=== PATIENT | female | born 1990 | race Caucasian/White ===

== ENCOUNTER 2020-01-20 12:17 | Inpatient (IN) | payer OTHER ==
[~2020-01-20] VITALS: Ht 167.6 cm; Wt 129.3 kg
--- OUTSIDE RECORDS SUMMARY | ~2020-01-20 | XMS | Encounter Summary ---
Demographics + + + | Address | [address] [place] [address] St | | | [place] [address] | + + + | Home Phone | | + + + | Preferred Language | Unknown | + + + | Marital Status | | + + + | Quaker Affiliation | Unknown | + + + | Race | White | + + + | Ethnic Group | Not or | + + + Author + + + | Author | [facility] | | | and [place] | + + + | Organization | [facility] | | | and [place] | + + + | Address | Unknown | + + + | Phone | Unavailable | + + + Support + + +---------+ + | Name | Relationship | Address | Phone | + + +---------+ + | Thomas Fingers | ECON | Unknown | | + + +---------+ + Care Team Providers + +------+ + | Care Pipe Maker Name | Role | Phone | + +------+ + | Paige Woods MD | PCP | | + +------+ + Reason for Visit +---------+--------+ + | Reason | Onset | Comments | | | Date | | +---------+--------+ + | Results | 10/30/ | urine screens | | | 2020 | | +---------+--------+ + Encounter Details +--------+ + + + + | Date | Type | Department | Care Team | Description | +--------+ + + + + | 10/30/ | Telephone | [facility] | Barry Magaña | Results (urine | | 2020 | | [address] | [address] | screens) | | | | [place] | [address] [place] | | | | | [id number] | [id number] | | | | | [phone] | | | +--------+ + + + + Social History + +-------+ +--------+------+ | Tobacco Use | Types | Packs/Day | Years | Date | | | | | Used | | + +-------+ +--------+------+ | Never Smoker | | | | | + +-------+ +--------+------+ + +---+---+---+ | Smokeless Tobacco: | | | | | Never Used | | | | + +---+---+---+ + + + | Sex Assigned at | Date Recorded | | | | + + + | Not on file | | + + + documented as of this encounter Miscellaneous Notes Telephone Encounter - Stephanie King, Neighborhood Conservation Officer - 10/31/2019 10:20 AM PDTCalled patient and notified her of results, patient was satisfied with this and thanked me for the call. elephone Encounter - Barry Magaña MD - 10/31/2019 8:53 AM PDTNotify Florence, Urine screens for gonorrhea and chlamydia recently sent from urgent care were both negative . No change in plan. ERS documented in this encounter Plan of Treatment Not on filedocumented as of this encounter Visit Diagnoses Not on filedocumented in this encounter"
--- OUTSIDE RECORDS SUMMARY | ~2020-01-20 | XMS | Encounter Summary ---
Demographics + + + | Address | [address] [place] [address] St | | | [place] [address] | + + + | Home Phone | | + + + | Preferred Language | Unknown | + + + | Marital Status | | + + + | Worship Affiliation | Unknown | + + + | Race | White | + + + | Ethnic Group | Not or | + + + Author + + + | Author | [facility] | | | and [place] | + + + | Organization | [facility] | | [...] Team Providers + +------+ + | Care Potato Sorter Name | Role | Phone | + +------+ + | Paige Woods MD | PCP | | + +------+ + Reason for Visit +---------+--------+ + | Reason | Onset | Comments | | | Date | | +---------+--------+ + | Results | 10/26/ | | | | 2020 | | +---------+--------+ + Encounter Details +--------+ + + + + | Date | Type | Department | Care Team | Description | +--------+ + + + + | 10/26/ | Telephone | [facility] | PoojamaraBarry vazquez | Results | | 2020 | | [address] | [address] | | | | | [place] | [address] [place] | | | | | [phone] | [address] | | | | | [phone] | | | +--------+ + + + [...] this encounter Miscellaneous Notes Telephone Encounter - Barry Magaña MD - 10/27/2019 2:25 PM PDTI called Florence at the number provided. She was informed of her negative serum hCG, CRP and CBC. She was pleased, feels fine and a ppreciated the call. She had no further questions. ERS documented in this encounter Plan of Treatment Not on filedocumented as of this encounter Visit Diagnoses Not on filedocumented in this encounter"
--- OUTSIDE RECORDS SUMMARY | ~2020-01-20 | XMS | Clinical Summary ---
Demographics + + + | Address | [address] | | | [place] [address] | + + + | Home Phone | | + + + | Preferred Language | Unknown | + + + | Marital Status | | + + + | Anabaptist Affiliation | Unknown | + + + | Race | White | + + + | Ethnic Group | Not or | + + + Author + + + | Author | [facility] | | | and [place] | + + + | Organization | [facility] | | | and [...] Team Providers + +------+ + | Care Water Operator Name | Role | Phone | + +------+ + | Paige Woods MD | PCP | | + +------+ + Allergies No Known Allergies Medications + + + +---------+------+------+-------+ | Medication | Sig | Dispensed | Refills | Star | End | Statu | | | | | | t | Date | s | | | | | | Date | | | + + + +---------+------+------+-------+ | atoMOXetine | | | 0 | 04/0 | | Activ | | (MICK) 40 mg | | | | 3/20 | | e | | capsule | | | | 20 | | | + + + +---------+------+------+-------+ | topiramate | | | 0 | 05/2 | | Activ | | (TOPAMAX) 50 MG | | | | 0/20 | | e | | tablet | | | | 20 | | | + + + +---------+------+------+-------+ | levonorgestrel | 1 Device by | | 0 | | | Activ | | (MIRENA, 52 MG,) 20 | Intrauterine route | | | | | e | | MCG/24HR IUD | once. | | | | | | + + + +---------+------+------+-------+ | | Take 1-2 tablets by | 15 | 0 | 09/0 | | Activ | | HYDROcodone-acetamin | mouth EVERY 4 TO 6 | tablet | | 1/20 | | e | | ophen (NORCO) 5-325 | HOURS NEEDED for | | | 20 | | | | mg per tablet | Pain. | | | | | | + + + +---------+------+------+-------+ | dicyclomine | Take 1 tablet by | 20 | 0 | 09/0 | | Activ | | (BENTYL) 20 MG | mouth 4 times daily | tablet | | 1/20 | | e | | tablet | (before meals and | | | 20 | | | | | nightly). | | | | | | + + + +---------+------+------+-------+ | ondansetron | Take 1 tablet by | 15 | 0 | 09/0 | | Activ | | (ZOFRAN ODT) 4 mg | mouth every 6 hours | tablet | | 1/20 | | e | | disintegrating | as needed for | | | 20 | | | | tablet | Nausea. | | | | | | + + + +---------+------+------+-------+ Active Problems No known active problems Encounters +--------+ + + + + | Date | Type | Specialty | Care Team | Description | +--------+ + + + + | 01/19/ | Emergency | Emergency Medicine | Khurram Quintero, | Biliary colic | | 2019 | | | MD Lyons, | (Primary Dx); | | | | | Eleazar Dukes MD | Calculus of | | | | | | gallbladder without | | | | | | cholecystitis | | | | | | without obstruction | +--------+ + + + + | 10/30/ | Telephone | Immediate Care | Barry Magaña | Results (urine | | 2019 | | | MD Mehdi | screens) | +--------+ + + + + | 10/26/ | Office | Immediate Care | Barry Magaña | Right lower quadrant | | 2019 | Visit | | MD Mehdi | abdominal pain | | | | | | (Primary Dx); | | | | | | Irregular menses; | | | | | | IUD (intrauterine | | | | | | device) in place | +--------+ + + + + | 10/26/ | Telephone | Immediate Care | Barry Magaña | Results | | 2020 | | | MD Mehdi | | +--------+ + + + + from Last 3 Months Social History + +-------+ +--------+------+ | Tobacco [...] on file | | + + + Last Filed Vital Signs + + + + + | Vital Sign | Reading | Time Taken | Comments | + + + + + | Blood Pressure | 154/95 | 01/20/2020 8:01 AM | | | | | PDT | | + + + + + | Pulse | 77 | 01/20/2020 8:01 AM | | | | | PDT | | + + + + + | Temperature | 35.8 C (96.4 F) | 01/20/2020 5:29 AM | | | | | PDT | | + + + + + | Respiratory Rate | 16 | 01/20/2020 5:29 AM | | | | | PDT | | + + + + + | Oxygen Saturation | 97% | 01/20/2020 8:01 AM | | | | | PDT | | + + + + + | Inhaled Oxygen | - | - | | | Concentration | | | | + + + + + | Weight | 129.3 kg (285 lb) | 01/20/2020 5:36 AM | | | | | PDT | | + + + + + | Height | 165.1 cm (5' 5") | 01/20/2020 5:36 AM | | | | | PDT | | + + + + + | Body Mass Index | 47.43 | 01/20/2020 5:36 AM | | | | | PDT | | + + + + + Plan of Treatment + + +-------+ + | Health Maintenance | Due Date | Last | Comments | | | | Done | | + + +-------+ + | Hepatitis C | | | | | Screening | 2 | | | + + +-------+ + | Med Mgmt: Cr | | | | | | 2 | | | + + +-------+ + | Med Mgmt: eGFR | | | | | | 2 | | | + + +-------+ + | Medication | | | | | Management | 2 | | | + + +-------+ + | Vaccine: | | | | | Dtap/Tdap/Td (1 - | 1 | | | | Tdap) | | | | + + +-------+ + | Cervical Cancer | | | | | Screening (Pap) | 3 | | | + + +-------+ + | Vaccine: Influenza | | | | | (#1) | 0 | | | + + +-------+ + Procedures + +--------+ + + + | Procedure Name | Priori | Date/Time | Associated Diagnosis | Comments | | | ty | | | | + +--------+ + + + | US ABDOMEN LIMITED | STAT | 01/20/2020 | | Results for this | | | | 7:45 AM | | procedure are in the | | | | PDT | | results section. | + +--------+ + + + | POCT URINALYSIS, | STAT | 01/20/2020 | | Results for this | | AUTO WITH CONF | | 6:52 AM | | procedure are in the | | | | PDT | | results section. | + +--------+ + + + | POCT TEST, | STAT | 01/20/2020 | | Results for this | | URINE, QUAL | | 6:50 AM | | procedure are in the | | | | PDT | | results section. | + +--------+ + + + | LIPASE | STAT | 01/20/2020 | | Results for this | | | | 5:45 AM | | procedure are in the | | | | PDT | | results section. | + +--------+ + + + | COMPREHENSIVE | STAT | 01/20/2020 | | Results for this | | METABOLIC PANEL | | 5:45 AM | | procedure are in the | | | | PDT | | results section. | + +--------+ + + + | CBC WITH | STAT | 01/20/2020 | | Results for this | | DIFFERENTIAL | | 5:45 AM | | procedure are in the | | | | PDT | | results section. | + +--------+ + + + | , SERUM, | STAT | 10/27/2019 | Right lower | Results for this | | QUAL | | 1:31 PM | quadrant abdominal | procedure are in the | | | | PDT | pain | results section. | + +--------+ + + + | CBC WITH | STAT | 10/27/2019 | Right lower | Results for this | | DIFFERENTIAL | | 1:31 PM | quadrant abdominal | procedure are in the | | | | PDT | pain | results section. | + +--------+ + + + | C-REACTIVE PROTEIN | STAT | 10/27/2019 | Right lower | Results for this | | | | 1:31 PM | quadrant abdominal | procedure are in the | | | | PDT | pain | results section. | + +--------+ + + + | C. TRACHOMATIS AND | STAT | 10/27/2019 | Right lower | Results for this | | N. GONORRHOEAE, NAAT | | 1:24 PM | quadrant abdominal | procedure are in the | | (APTIMA) | | PDT | pain | results section. | + +--------+ + + + | POCT TEST, | Routin | 10/27/2019 | Right lower | Results for this | | URINE, QUAL | e | 1:20 PM | quadrant abdominal | procedure are in the | | | | PDT | pain | results section. | + +--------+ + + + | POCT URINALYSIS, | Routin | 10/27/2019 | Right lower | Results for this | | AUTO WITH CONF | e | 1:20 PM | quadrant abdominal | procedure are in the | | | | PDT | pain | results section. | + +--------+ + + + from Last 3 Months Results US Abdomen Limited (01/20/2020 7:45 AM PDT) + + | Specimen | + + | | + + + + + | Impressions | Performed At | + + + | 1. IMPACTED APPEARING GALLSTONE AT THE LEVEL OF THE GALLBLADDER | [facility] | | NECK WITHOUT ADDITIONAL SONOGRAPHIC EVIDENCE OF CHOLECYSTITIS. NO | | | BILIARY DUCTAL DILATION. 2. POTENTIAL FATTY INFILTRATION OF THE | | | LIVER. Results were communicated to Dr. Lyons by the | | | pipe organ mechanic performing the exam on January 20, 2020 at 0800 hours. | | | Electronically signed by Vishnu Rincon MD 01/20/2020 8:30 AM | | + + + + + + | Narrative | Performed At | + + + | LIMITED ULTRASOUND ABDOMEN 01/20/2020 7:09 AM CLINICAL HISTORY: | [facility] | | Evaluate for cholecystitis COMPARISON: None FINDINGS: The | | | pancreas is not well visualized at the level of its body and tail due | | | to overlying bowel gas. The visible pancreas is unremarkable. The | | | liver measures 15.6 cm in craniocaudal dimension. Slightly increased | | | hepatic echotexture is suggested, potentially reflecting fatty | | | infiltration. The gallbladder is moderately distended and | | | demonstrates an echogenic, shadowing structure consistent with a | | | gallstone at the level the gallbladder neck, measuring up to 1.6 cm. | | | No other gallstone, gallbladder wall thickening or pericholecystic | | | fluid is evident. Sonographic Harrison sign is reportedly negative, | | | although the patient was administered analgesia prior to the exam. | | | The common duct measures up to 4 mm in diameter. No ascites is | | | visible. The portal and hepatic veins are patent and demonstrate | | | appropriately directed flow. | | + + + + + | Procedure Note | + + | Igor, [id number] - 01/20/2020 8:33 AM PDT LIMITED ULTRASOUND ABDOMEN 01/20/2020 7:09 AM | | | | CLINICAL HISTORY: Evaluate for cholecystitis | | | | COMPARISON: None | | | | FINDINGS: The pancreas is not well visualized at the level of its body | | and tail due to overlying bowel gas. The visible pancreas is | | unremarkable. The liver measures 15.6 cm in craniocaudal dimension. | | Slightly increased hepatic echotexture is suggested, potentially | | reflecting fatty infiltration. The gallbladder is moderately | | distended and demonstrates an echogenic, shadowing structure | | consistent with a gallstone at the level the gallbladder neck, | | measuring up to 1.6 cm. No other gallstone, gallbladder wall | | thickening or pericholecystic fluid is evident. Sonographic Harrison | | sign is reportedly negative, although the patient was administered | | analgesia prior to the exam. The common duct measures up to 4 mm in | | diameter. No ascites is visible. The portal and hepatic veins are | | patent and demonstrate appropriately directed flow. | | | | IMPRESSION: | | | | 1. IMPACTED APPEARING GALLSTONE AT THE LEVEL OF THE GALLBLADDER NECK | | WITHOUT ADDITIONAL SONOGRAPHIC EVIDENCE OF CHOLECYSTITIS. NO BILIARY | | DUCTAL DILATION. | | | | 2. POTENTIAL FATTY INFILTRATION OF THE LIVER. | | | | Results were communicated to Dr. Lyons by the pipe organ mechanic | | performing the exam on January 20, 2020 at 0800 hours. | | | | Electronically signed by Vishnu Rincon MD 01/20/2020 8:30 AM | + + + +---------+ + + | Performing | Address | City/State/Zipcode | Phone Number | | Organization | | | | + +---------+ + + | [facility] | | | | + +---------+ + + POCT Urinalysis (01/20/2020 6:52 AM PDT)Only the most recent of 2 results within the time period is included. + + + + + + | Component | Value | Ref Range | Performed | Pathologist | | | | | At | Signature | + + + + + + | Color, UA, | Light Yellow | Yellow, Light | | | | POC | | Yellow | | | + + + + + + | Clarity, | Clear | | | | | UA, POC | | | | | + + + + + + | Glucose, | Negative | Negative | | | | UA, POC | | | | | + + + + + + | Bilirubin, | Negative | Negative | | | | UA, POC | | | | | + + + + + + | Ketones, | Negative | Negative, 100 | | | | UA, POC | | mg/dL | | | + + + + + + | Specific | 1.030 | 1.001 - 1.030 | | | | [place], | | | | | | UA, POC | | | | | + + + + + + | Blood, UA, | Negative | Negative | | | | POC | | | | | + + + + + + | pH, UA, POC | 5.5 | 5.0, 6.0, 7.0, | | | | | | 8.0, 5.5, 6.5, | | | | | | 7.5 | | | + + + + + + | Protein, | Negative | Negative | | | | UA, POC | | | | | + + + + + + | Urobilinoge | < 0.2 E.U./dl | 0.2, Negative, | | | | n, UA, POC | | Normal, < 0.2 | | | | | | mg/dL, 1 mg/dL, | | | | | | < 0.2 E.U./dl, | | | | | | 1.0 E.U./dL, | | | | | | 0.2 mg/dL | | | + + + + + + | Nitrite, | Negative | Negative | | | | UA, POC | | | | | + + + + + + | Leukocyte | Negative | Negative | | | | Esterase, | | | | | | UA, POC | | | | | + + + + + + | Remark | | | | | + + + + + + + + | Specimen | + + | Urine | + + POCT Test, Urine, QUAL (01/20/2020 6:50 AM PDT)Only the most recent of 2 results within the time period is included. + + + + + + | Component | Value | Ref Range | Performed | Pathologist | | | | | At | Signature | + + + + + + | | Negative | Negative | | | | Test, | | | | | | Urine, POC | | | | | + + + + + + | Internal QC | Acceptable | Acceptable | | | + + + + + + | Specific | >=1.030 (A) | 1.010, 1.015, | | | | [place], | | 1.020, 1.025 | | | | POC | | | | | + + + + + + | Lot Number | [id number] | | | | + + + + + + | Expiration | 03/26/2021 | | | | | Date | | | | | + + + + + + + + | Specimen | + + | Urine | + + CBC with Differential (01/20/2020 5:45 AM PDT)Only the most recent of 2 results within the time period is included. + + + + + + | Component | Value | Ref Range | Performed | Pathologist | | | | | At | Signature | + + + + + + | White Blood | 6.3 | 4.0 - 11.0 K/uL | [facility] | | | Cells | | | [facility] | | | | | | [facility] | | | | | | [facility] - | | | | | | LABORATORY | | + + + + + + | Red Blood | 4.57 | 3.70 - 5.20 | [facility] | | | Cells | | M/uL | [facility] | | | | | | [facility] | | | | | | CENTER - | | | | | | LABORATORY | | + + + + + + | Hemoglobin | 13.7 | 11.5 - 16.0 | [facility] | | | | | g/dL | [facility] | | | | | | [facility] | | | | | | CENTER - | | | | | | LABORATORY | | + + + + + + | Hematocrit | 38.4 | 34.0 - 47.0 % | [facility] | | | | | | [facility] | | | | | | [facility] | | | | | | [facility] - | | | | | | LABORATORY | | + + + + + + | MCV | 84.0 | 83.0 - 101.0 fL | [facility] | | | | | | [facility] | | | | | | [facility] | | | | | | [facility] - | | | | | | LABORATORY | | + + + + + + | MCH | 30.0 | 28.0 - 35.0 pg | [facility] | | | | | | [facility] | | | | | | [facility] | | | | | | [facility] - | | | | | | LABORATORY | | + + + + + + | MCHC | 35.7 | 32.0 - 36.0 | [facility] | | | | | g/dL | [facility] | | | | | | [facility] | | | | | | CENTER - | | | | | | LABORATORY | | + + + + + + | RDW-CV | 12.2 | <15.0 % | [facility] | | | | | | [facility] | | | | | | [facility] | | | | | | [facility] - | | | | | | LABORATORY | | + + + + + + | RDW-SD | 37.1 | 35.1 - 46.3 fL | [facility] | | | | | | [facility] | | | | | | [facility] | | | | | | [facility]ENTER - | | | | | | LABORATORY | | + + + + + + | Platelet | 192 | 140 - 440 K/uL | [facility] | | | Count | | | [facility] | | | | | | [facility] | | | | | | CENTER - | | | | | | LABORATORY | | + + + + + + | MPV | 11.0 | 6.5 - 12.4 fL | [facility] | | | | | | [facility] | | | | | | [facility] | | | | | | C[facility] - | | | | | | LABORATORY | | + + + + + + | % | 56.5 | 45.0 - 82.0 % | [facility] | | | Neutrophils | | | [facility] | | | | | | [facility] | | | | | | CENTER - | | | | | | LABORATORY | | + + + + + + | % | 29.3 | 20.0 - 45.0 % | [facility] | | | Lymphocytes | | | [facility] | | | | | | [facility]ICAL | | | | | | CENTER - | | | | | | LABORATORY | | + + + + + + | % Monocytes | 10.4 | 4.0 - 12.0 % | [facility] | | | | | | [facility] | | | | | | [facility] | | | | | | CENTER - | | | | | | LABORATORY | | + + + + + + | % | 3.0 | 0.0 - 5.0 % | [facility] | | | Eosinophils | | | [facility] | | | | | | MEDICAL | | | | | | CENTER - | | | | | | LABORATORY | | + + + + + + | % Basophils | 0.5 | 0.0 - 1.0 % | [facility] | | | | | | [facility] | | | | | | [facility]ICAL | | | | | | CENTER - | | | | | | LABORATORY | | + + + + + + | % Immature | 0.3Comment: For | 0.0 - 0.4 % | [facility] | | | Granulocyte | patients, use the | | [facility] | | | s | special reference ranges | | MEDICAL | | | | listed below. | | CENTER - | | | | | | LABORATORY | | + + + + + + | Absolute | 3.55 | 1.80 - 8.50 | [facility] | | | Neutrophils | | K/uL | [facility] | | | | | | [facility] | | | | | | CENTER - | | | | | | LABORATORY | | + + + + + + | Absolute | 1.84 | 0.60 - 3.20 | [facility] | | | Lymphocytes | | K/uL | [facility] | | | | | | MEDICAL | | | | | | CENTER - | | | | | | LABORATORY | | + + + + + + | Absolute | 0.65 | 0.00 - 1.00 | [facility] | | | Monocytes | | K/uL | [facility] | | | | | | MEDICAL | | | | | | CENTER - | | | | | | LABORATORY | | + + + + + + | Absolute | 0.19 | 0.00 - 0.40 | [facility] | | | Eosinophils | | K/uL | [facility] | | | | | | MEDICAL | | | | | | CENTER - | | | | | | LABORATORY | | + + + + + + | Absolute | 0.03 | 0.00 - 0.10 | [facility] | | | Basophils | | K/uL | [facility] | | | | | | MEDICAL | | | | | | CENTER - | | | | | | LABORATORY | | + + + + + + | Absolute | 0.02Comment: For | 0.00 - 0.03 | [facility] | | | Immature | patients, use | K/uL | [facility] | | | Granulocyte | the special reference | | MEDICAL | | | s | ranges listed below. | | CENTER - | | | | | | LABORATORY | | + + + + + + | % nRBC | 0 | 0 - 2 per 100 | [facility] | | | | | WBCs | [facility] | | | | | | MEDICAL | | | | | | CENTER - | | | | | | LABORATORY | | + + + + + + | Absolute | 0.00 | 0.00 - 0.01 | [facility] | | | nRBC | | K/uL | [facility] | | | | | | [facility] | | | | | | [facility] - | | | | | | LABORATORY | | + + + + + + + + | Specimen | + + | Blood | + + + + + | Narrative | Performed At | + + + | IMMATURE GRANULOCYTES - For patients, use the following | [facility] | | reference ranges: Trim. Absolute (K/uL) Percentage (%) | [facility] | | 1st 0.003-0.091 K/uL 0.0-0.9% 2nd 0.007-0.247 K/uL | MEDICAL CENTER | | 0.1-2.0% 3rd 0.018-0.456 K/uL 0.1-2.0% | - LABORATORY | + + + + + + + + | Performing | Address | City/State/Zipcode | Phone Number | | Organization | | | | + + + + + | [facility] | [address] | [place] | [phone] | | [facility] | | [address] | | | - LABORATORY | | | | + + + + + Lipase (01/20/2020 5:45 AM PDT) + + + + + + | Component | Value | Ref Range | Performed | Pathologist | | | | | At | Signature | + + + + + + | Lipase | 42Comment: New method in | 12 - 53 U/L | [facility] | | | | use as of July 17, | | [facility] | | | | 2018. Check reference | | MEDICAL | | | | range for changes.Some | | CENTER - | | | | analytes show | | LABORATORY | | | | significant variation | | | | | | from the previous | | | | | | method.It may be | | | | | | necessary to set a new | | | | | | baseline for this | | | | | | analyte. | | | | + + + + + + + + | Specimen | + + | Blood | + + + + + + + | Performing | Address | City/State/Zipcode | Phone Number | | Organization | | | | + + + + + | [facility] | [address] | [place] | [phone] | | [facility] | | [address] | | | - LABORATORY | | | | + + + + + Comprehensive Metabolic Panel (01/20/2020 5:45 AM PDT) + + + + + + | Component | Value | Ref Range | Performed | Pathologist | | | | | At | Signature | + + + + + + | Na | 142 | 136 - 145 | [facility] | | | | | mmol/L | [facility] | | | | | | MEDICAL | | | | | | CENTER - | | | | | | LABORATORY | | + + + + + + | K | 3.7 | 3.4 - 5.1 | [facility] | | | | | mmol/L | [facility] | | | | | | MEDICAL | | | | | | CENTER - | | | | | | LABORATORY | | + + + + + + | Cl | 105 | 98 - 107 mmol/L | [facility] | | | | | | [facility] | | | | | | MEDICAL | | | | | | CENTER - | | | | | | LABORATORY | | + + + + + + | CO2 | 27 | 20 - 31 mmol/L | [facility] | | | | | | [facility] | | | | | | MEDICAL | | | | | | CENTER - | | | | | | LABORATORY | | + + + + + + | Anion Gap | 10 | 3 - 16 mmol/L | [facility] | | | | | | [facility] | | | | | | MEDICAL | | | | | | CENTER - | | | | | | LABORATORY | | + + + + + + | Glucose | 98 | 60 - 106 mg/dL | [facility] | | | | | | [facility] | | | | | | MEDICAL | | | | | | CENTER - | | | | | | LABORATORY | | + + + + + + | BUN | 16 | 9 - 23 mg/dL | [facility] | | | | | | [facility] | | | | | | MEDICAL | | | | | | CENTER - | | | | | | LABORATORY | | + + + + + + | Creatinine | 0.96 | 0.55 - 1.02 | [facility] | | | | | mg/dL | [facility] | | | | | | MEDICAL | | | | | | CENTER - | | | | | | LABORATORY | | + + + + + + | eGFR, | >60Comment: GLOMERULAR | >=60 | [facility] | | | non- | FILTRATION | mL/min/1.73m2 | [facility] | | | [place] | RATE,ESTIMATED | | MEDICAL | | | | mL/min/1.47m4Hrxb than | | CENTER - | | | | 60 Chronic kidney | | LABORATORY | | | | disease,if found over a | | | | | | 3-month period.Less than | | | | | | 15 Kidney failure | | | | + + + + + + | eGFR, | >60Comment: GLOMERULAR | >=60 | [facility] | | | | FILTRATION | mL/min/1.73m2 | [facility] | | | [place] | RATE,ESTIMATED | | MEDICAL | | | | mL/min/1.42v5Obsl than | | CENTER - | | | | 60 Chronic kidney | | LABORATORY | | | | disease,if found over a | | | | | | 3-month period.Less than | | | | | | 15 Kidney failure | | | | + + + + + + | Calcium | 9.6 | 8.7 - 10.4 | [facility] | | | | | mg/dL | [facility] | | | | | | MEDICAL | | | | | | CENTER - | | | | | | LABORATORY | | + + + + + + | Albumin | 4.4 | 3.2 - 4.8 g/dL | [facility] | | | | | | [facility] | | | | | | MEDICAL | | | | | | CENTER - | | | | | | LABORATORY | | + + + + + + | Bilirubin | 0.4 | 0.3 - 1.2 mg/dL | [facility] | | | Total | | | [facility] | | | | | | MEDICAL | | | | | | CENTER - | | | | | | LABORATORY | | + + + + + + | Total | 6.5 | 5.7 - 8.2 g/dL | [facility] | | | Protein | | | [facility] | | | | | | MEDICAL | | | | | | CENTER - | | | | | | LABORATORY | | + + + + + + | AST | 27 | 0 - 34 U/L | [facility] | | | | | | [facility] | | | | | | MEDICAL | | | | | | CENTER - | | | | | | LABORATORY | | + + + + + + | ALT | 14 | 10 - 49 U/L | [facility] | | | | | | [facility] | | | | | | MEDICAL | | | | | | CENTER - | | | | | | LABORATORY | | + + + + + + | Alkaline | 55 | 46 - 116 U/L | [facility] | | | Phosphatase | | | [facility] | | | | | | MEDICAL | | | | | | CENTER - | | | | | | LABORATORY | | + + + + + + | Globulin | 2.1 | 2.1 - 3.8 g/dL | [facility] | | | | | | [facility] | | | | | | MEDICAL | | | | | | CENTER - | | | | | | LABORATORY | | + + + + + + | Albumin/Melodie | 2.1 (H) | 0.8 - 1.9 | [facility] | | | bulin Ratio | | | [facility] | | | | | | MEDICAL | | | | | | CENTER - | | | | | | LABORATORY | | + + + + + + | BUN/Creatin | 16.7 | | [facility] | | | ine Ratio | | | [facility] | | | | | | MEDICAL | | | | | | CENTER - | | | | | | LABORATORY | | + + + + + + + + | Specimen | + + | Blood | + + + + + + + | Performing | Address | City/State/Zipcode | Phone Number | | Organization | | | | + + + + + | [facility] | [address] | [place] | [phone] | | [facility] | | [address] | | | - LABORATORY | | | | + + + + + C-Reactive Protein (10/27/2019 1:31 PM PDT) + +-------+ + + + | Component | Value | Ref Range | Performed | Pathologist | | | | | At | Signature | + +-------+ + + + | C-Reactive | <2.0 | 0.0 - 9.0 mg/L | [facility] | | | Protein | | | [facility] | | | | | | [facility] | | | | | | [facility] | | | | | | [facility] | | + +-------+ + + + + + | Specimen | + + | Blood | + + + + + + + | Performing | Address | City/State/Zipcode | Phone Number | | Organization | | | | + + + + + | [facility] | [address] | [place] | [phone] | | [facility] | | [address] | | | [facility] | | | | + + + + + , Serum, Qual (10/27/2019 1:31 PM PDT) + + + + + + | Component | Value | Ref Range | Performed | Pathologist | | | | | At | Signature | + + + + + + | hCG Screen, | Negative | Negative | [facility] | | | Serum | | | [facility] | | | | | | [facility] | | | | | | [facility] | | | | | | LAB[facility] | | + + + + + + + + | Specimen | + + | Blood | + + + + + + + | Performing | Address | City/State/Zipcode | Phone Number | | Organization | | | | + + + + + | [facility] | [address] | [place] | [phone] | | [facility] | | [address] | | | [facility] | | | | + + + + + C. trachomatis and N. gonorrhoeae, NAAT (APTIMA) (10/27/2019 1:24 PM PDT) + + + + + + | Component | Value | Ref Range | Performed | Pathologist | | | | | At | Signature | + + + + + + | Chlamydia | Negative | Negative | [facility] | | | trachomatis | | | LAB [facility] | | | PCR | | | - BKR | | + + + + + + | Neisseria | Negative | Negative | [facility] | | | Gonorrhoeae | | | LAB [facility] | | | DNA PCR | | | - BKR | | + + + + + + + + | Specimen | + + | Urine - Urine | | specimen (specimen) | + + + + + | Narrative | Performed At | + + + | Performed at: [address] [facility] [address], | [facility] | | [place], [place] [id number] Shift Boss: Mauricio Oscar MD, Phone: | [facility] | | [phone] | | + + + + + + + + | Performing | Address | City/State/Zipcode | Phone Number | | Organization | | | | + + + + + | [facility] | [address] | [place], [place] | [phone] | | [facility] | [facility] | [address] | | + + + + + from Last 3 Months Insurance +-------+--------+ +--------+ + +------+ | Payer | Benefi | Subscriber | Effect | Phone | Address | Type | | | t Plan | ID | tevin | | | | | | / | | Dates | | | | | | Group | | | | | | +-------+--------+ +--------+ + +------+ | MODA | MODA | [id number] | 05/21/19 | [phone] | [address] | PPO | | | FIRST | | 20-Pre | 9 | [phone] | | | | CHOICE | | sent | | [place], | | | | | | | | [place] [address] | | +-------+--------+ +--------+ + +------+ + +--------+ +--------+ + + | Guarantor Name | Accoun | Relation to | Date | Phone | Billing Address | | | t Type | Patient | of | | | | | | | | | | + +--------+ +--------+ + + | Florence Eubanks | Person | Self | [birth year] | [address] | | | al/Fam | | 1989 | [phone] | [place] | | | [place] | | | 4 (Home) | [phone] | + +--------+ +--------+ + + | Florence Eubanks | Person | Self | [birth year] | | [address] | | | al/Fam | | 1989 | [phone] | [place] | | | [place] | | | 4 (Home) | [phone] | + +--------+ +--------+ + + Advance Directives + + + + + | Type | Date Recorded | Patient | Explanation | | | | Intake Worker | | + + + + + | Power of | | | | | Drying Oven Attendant | | | | + + + + + | Advance | | | | | Directive | | | | + + + + +
--- OUTSIDE RECORDS SUMMARY | ~2020-01-20 | XMS | Encounter Summary ---
Demographics + + + | Address | [address] [place] [address] St | | | [place] [address] | + + + | Home Phone | | + + + | Preferred Language | Unknown | + + + | Marital Status | | + + + | Hoahaoism Affiliation | Unknown | + + + | Race | White | + + + | Ethnic Group | Not or | + + + Author + + + | Author | [facility] | | | and [place] | + + + | Organization | [facility] | | | and [...] Team Providers + +------+ + | Care Window Installation Subcontractor Name | Role | Phone | + +------+ + | Paige Woods MD | PCP | | + +------+ + Reason for Visit + + + | Reason | Comments | + + + | Abdominal Pain | | + + + Encounter Details +--------+ + + + + | Date | Type | Department | Care Team | Description | +--------+ + + + + | 01/19/ | Emergency | [facility] | Khurram Quintero, | Biliary colic | | 2020 | | [facility] | [address] | (Primary Dx); | | | | CENTER [address] | [place], [place] | Calculus of | | | | [place], [place] | [address] | gallbladder without | | | | [address] | | cholecystitis | | | | [phone] | Eleazar Lyons | without obstruction | | | | | [place], [address] | | | | | | [address] [place], [place] | | | | | | [address] | | | | | | [phone] | | | | | | | | +--------+ + + + [...] + + documented as of this encounter Last Filed Vital Signs + + + [...] | | + + + + + documented in this encounter Discharge Instructions Instructions Eleazar Lyons MD - 01/20/2020Dicyclomine for gallbladder pain/spasm [place] for more severe pain Zofran for nausea Return for worsening symptoms or any other concerns Call Dr. Murphy's office today to schedule a follow-up appointment documented in this encounter Medications at Time of Discharge + + + +---------+ + + | Medication | Sig | Dispensed | Refills | Start | End Date | | | | | | Date | | + + + +---------+ + + | atoMOXetine | | | 0 | 08/22/19 | | | (STRATTERA) 40 mg | | | | 20 | | | capsule | | | | | | + + + +---------+ + + | dicyclomine | Take 1 tablet by | 20 | 0 | 01/20/20 | | | (BENTYL) 20 MG | mouth 4 times daily | tablet | | 20 | | | tablet | (before meals and | | | | | | | nightly). | | | | | + + + +---------+ + + | | Take 1-2 tablets by | 15 | 0 | 01/20/20 | | | HYDROcodone-acetamin | mouth EVERY 4 TO 6 | tablet | | 20 | | | ophen (NORCO) 5-325 | HOURS NEEDED for | | | | | | mg per tablet | Pain. | | | | | + + + +---------+ + + | levonorgestrel | 1 Device by | | 0 | | | | (MIRENA, 52 MG,) 20 | Intrauterine route | | | | | | MCG/24HR IUD | once. | | | | | + + + +---------+ + + | ondansetron | Take 1 tablet by | 15 | 0 | 01/20/20 | | | (ZOFRAN ODT) 4 mg | mouth every 6 hours | tablet | | 20 | | | disintegrating | as needed for | | | | | | tablet | Nausea. | | | | | + + + +---------+ + + | topiramate | | | 0 | 10/08/19 | | | (TOPAMAX) 50 MG | | | | 20 | | | tablet | | | | | | + + + +---------+ + + documented as of this encounter ED Notes Eleazar Lyons MD - 01/20/2020 6:26 AM PDTFormatting of this note might be differe nt from the original. Patient was previously seen and evaluated by Dr. Quintero. Please see their note for full h istory, exam and workup details. Upon change of shift care was turned over to myself with a general plan to follow up on lab and imaging studies to determine further treatment and juvencio ropriate disposition. Labs Results for orders placed or performed during the hospital encounter of 01/20/20 CBC with Differential Result Value Ref Range White Blood Cells 6.3 4.0 - 11.0 K/uL Red Blood Cells 4.57 3.70 - 5.20 M/uL Hemoglobin 13.7 11.5 - 16.0 g/dL Hematocrit 38.4 34.0 - 47.0 % MCV 84.0 83.0 - 101.0 fL MCH 30.0 28.0 - 35.0 pg MCHC 35.7 32.0 - 36.0 g/dL RDW-CV 12.2 <15.0 % RDW-SD 37.1 35.1 - 46.3 fL Platelet Count 192 140 - 440 K/uL MPV 11.0 6.5 - 12.4 fL % Neutrophils 56.5 45.0 - 82.0 % % Lymphocytes 29.3 20.0 - 45.0 % % Monocytes 10.4 4.0 - 12.0 % % Eosinophils 3.0 0.0 - 5.0 % % Basophils 0.5 0.0 - 1.0 % % Immature Granulocytes 0.3 0.0 - 0.4 % Absolute Neutrophils 3.55 1.80 - 8.50 K/uL Absolute Lymphocytes 1.84 0.60 - 3.20 K/uL Absolute Monocytes 0.65 0.00 - 1.00 K/uL Absolute Eosinophils 0.19 0.00 - 0.40 K/uL Absolute Basophils 0.03 0.00 - 0.10 K/uL Absolute Immature Granulocytes 0.02 0.00 - 0.03 K/uL % nRBC 0 0 - 2 per 100 WBCs Absolute nRBC 0.00 0.00 - 0.01 K/uL Comprehensive Metabolic Panel Result Value Ref Range Na 142 136 - 145 mmol/L K 3.7 3.4 - 5.1 mmol/L Cl 105 98 - 107 mmol/L CO2 27 20 - 31 mmol/L Anion Gap 10 3 - 16 mmol/L Glucose 98 60 - 106 mg/dL BUN 16 9 - 23 mg/dL Creatinine 0.96 0.55 - 1.02 mg/dL eGFR, non- >60 >=60 mL/min/1.73m2 eGFR, >60 >=60 mL/min/1.73m2 Calcium 9.6 8.7 - 10.4 mg/dL Albumin 4.4 3.2 - 4.8 g/dL Bilirubin Total 0.4 0.3 - 1.2 mg/dL Total Protein 6.5 5.7 - 8.2 g/dL AST 27 0 - 34 U/L ALT 14 10 - 49 U/L Alkaline Phosphatase 55 46 - 116 U/L Globulin 2.1 2.1 - 3.8 g/dL Albumin/Globulin Ratio 2.1 (H) 0.8 - 1.9 BUN/Creatinine Ratio 16.7 Lipase Result Value Ref Range Lipase 42 12 - 53 U/L POCT Test, Urine, QUAL Result Value Ref Range Test, Urine, POC Negative Negative Internal QC Acceptable Acceptable Specific Shirley, POC >=1.030 (A) 1.010, 1.015, 1.020, 1.025 Lot Number [id number] Expiration Date 03/26/2021 POCT Urinalysis Result Value Ref Range Color, UA, POC Light Yellow Yellow, Light Yellow Clarity, UA, POC Clear Glucose, UA, POC Negative Negative Bilirubin, UA, POC Negative Negative Ketones, UA, POC Negative Negative, 100 mg/dL Specific Shirley, UA, POC 1.030 1.001 - 1.030 Blood, UA, POC Negative Negative pH, UA, POC 5.5 5.0, 6.0, 7.0, 8.0, 5.5, 6.5, 7.5 Protein, UA, POC Negative Negative Urobilinogen, UA, POC < 0.2 E.U./dl 0.2, Negative, Normal, < 0.2 mg/dL, 1 mg/dL, < 0.2 E.U ./dl, 1.0 E.U./dL, 0.2 mg/dL Nitrite, UA, POC Negative Negative Leukocyte Esterase, UA, POC Negative Negative Remark Imaging Ultrasound of the gallbladder, per report from the 3d artist, shows a stone in the neck o f the gallbladder. There is no pericholecystic fluid, wall thickening, sonographic Harrison s ign, or dilatation of the common bile duct ED Course and Medical Decision Making: Patient's labs are reassuring. Ultrasound does show a stone in the gallbladder but without evidence of cholecystitis. I discussed the case with Dr. Murphy from general surgery. At this point the plan will be for discharge home with outpatient clinic follow-up and plan for cholecystectomy in the next 1 to 2 weeks. This was all discussed with the patient at the [facility]. She is comfortable with this plan. She understands to have a no fat diet and to re turn to the ER for fevers or worsening symptoms. Last Set of Vital Signs: Temp: 35.8 C (96.4 F) Pulse: 77 Resp: 16 SpO2: 97 % BP: (!) 15 FINAL IMPRESSION ICD-10-CM ICD-9-CM 1. Biliary colic K80.50 574.20 2. Calculus of gallbladder without cholecystitis without obstruction K80.20 574.20 Follow-up Information Schedule an appointment as soon as possible for a visit with Matt Murphy MD. Specialty: Surgery Contact information: [address] [facility] [address] New Prescriptions DICYCLOMINE (BENTYL) 20 MG TABLET Take 1 tablet by mouth 4 times daily (before meals an d nightly). HYDROCODONE-ACETAMINOPHEN (NORCO) 5-325 MG PER TABLET Take 1-2 tablets by mouth EVERY 4 TO 6 HOURS NEEDED for Pain. ONDANSETRON (ZOFRAN ODT) 4 MG DISINTEGRATING TABLET Take 1 tablet by mouth every 6 hour s as needed for Nausea. Administrations This Visit fentaNYL (PF) injection 50 mcg Admin Date 01/20/2020 Action Given Dose 50 mcg Route Intravenous Administered By Tanner Osullivan RN ondansetron (ZOFRAN) injection 4 mg Admin Date 01/20/2020 Action Given Dose 4 mg Route Intravenous Administered By Tanner Osullivan RN sodium chloride 0.9% (NS) bolus 1,000 mL Admin Date 01/20/2020 Action New Bag Dose 1000 mL Rate 2,000 mL/hr Route Intravenous Administered By Tanner Osullivan RN Portions of this chart were created with [employer] voice recognition software. Inadvertent so und alike substitutions may be present and are unintentional Eleazar Lyons MD 01/20/20 0812 Khurram callahan MD - 01/20/2020 5:40 AM PDT eMERGENCY dEPARTMENT eNCOUnter CHIEF COMPLAINT Chief Complaint Patient presents with Abdominal Pain HPI Florence Eubanks is a 29 y.o. female who presents for evaluation of sudden onset of epigastric pain radiating to the right shoulder associated with nausea. Symptoms woke her from sleep a round 430 this morning. No fevers or chills. No vomiting or diarrhea. No cough, chest pain, or shortness of breath. Patient states that she had similar symptoms a couple of years ago a nd was told that it was her gallbladder. She was going to have surgery but then stopped havi ng symptoms and so she did not have surgery. PAST MEDICAL HISTORY No past medical history on file. SURGICAL HISTORY No past surgical history on file. 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 topiramate (TOPAMAX) 50 MG tablet ALLERGIES No Known Allergies FAMILY HISTORY No family history on file. SOCIAL HISTORY Social History Socioeconomic History Marital status: Spouse name: Not on file Number of children: Not on file Years of education: Not on file Highest education level: Not on file Tobacco Use Smoking status: Never Smoker Smokeless tobacco: Never Used REVIEW OF SYSTEMS A 12 system review of systems is otherwise negative except as noted in the HPI above. PHYSICAL EXAM VITAL SIGNS: (first vital signs):Temp: 35.8 C (96.4 F) Pulse: 101 Resp: 16 SpO2: 99 % B P: (!) 181/111 Constitutional: Well developed, Well nourished, No acute distress, Non-toxic appearance. HENT: Normocephalic, Atraumatic, Bilateral external ears normal, Oral mucosa moist, superintendent drilling ior pharynx no exudates, Nose normal. Neck-supple, nontender, no meningismus, No stridor. Eyes: PERRL, EOMI, Conjunctiva normal, No discharge. Respiratory: Breath sounds equal bilaterally, no adventitious sounds, No chest wall tender ness. Cardiovascular: Normal rate, normal S1, S2, no murmurs, rubs, or gallops GI: Abdomen soft, epigastric tenderness to palpation, non-distended, normal bowel sounds, no CVA tenderness : Musculoskeletal: Intact distal pulses, No edema, No tenderness, No cyanosis. Good range of motion in all major joints. No tenderness to palpation or major deformities noted. Back- No tenderness. Skin: Warm, Dry, No erythema, No rash or lesions. Lymphatic: Neurologic: Alert & oriented x 3, Cranial nerves II-XII intact, Normal sensation, motor, a nd strength in all four extremities, No focal deficits noted. Psychiatric: Affect normal, Judgment normal, Mood normal. Labs Reviewed CBC WITH DIFFERENTIAL - Normal Narrative: IMMATURE GRANULOCYTES - For patients, use the following reference ranges: Trim. Absolute (K/uL) Percentage (%) 1st 0.003-0.091 K/uL 0.0-0.9% 2nd 0.007-0.247 K/uL 0.1-2.0% 3rd 0.018-0.456 K/uL 0.1-2.0% COMPREHENSIVE METABOLIC PANEL LIPASE POCT TEST, URINE, QUAL POCT URINALYSIS RADIOLOGY CT Results: No results found. ED COURSE & MEDICAL DECISION MAKING Pertinent Labs & Imaging studies reviewed. (See chart for details) Patient presented with above symptoms and exam findings. IV was established and patient was given fentanyl, Zofran, and normal saline. Laboratory evaluation is pending at the time of this dictation as is ultrasound. Patient will be signed out to oncoming provider to follow u p on labs and ultrasound results. Last Set of Vital Signs: Temp: 35.8 C (96.4 F) Pulse: 101 Resp: 16 SpO2: 99 % BP: (!) 1 81/111 FINAL IMPRESSION 1. Biliary colic PLAN Khurram Quintero MD 01/20/20 0607 ingeringTanner RN - 01/20/2020 5:31 AM PDTPt. Having epigastric pain that travels to the right and has ba ck pain that started at 0430 this morning. She was sleeping and it woke her up. Last BM norm al for her. docume nted in this encounter Plan of Treatment Not on filedocumented as of this encounter Procedures + +--------+ + + + | [...] section. | + +--------+ + + + documented in this encounter Results US Abdomen Limited (01/20/2020 7:45 AM [...] Dr. Lyons by the | | | 3d artist performing the exam on January 20, 2020 [...] Procedure Note | + + | Igor, [id number] - 01/20/2020 8:33 AM PDT LIMITED ULTRASOUND [...] were communicated to Dr. Lyons by the 3d artist | | performing the exam on January [...] + + POCT Urinalysis (01/20/2020 6:52 AM PDT) + + + + + [...] 1.001 - 1.030 | | | | Shirley, | | | | | | UA, [...] POCT Test, Urine, QUAL (01/20/2020 6:50 AM PDT) + + + + + [...] | 1.010, 1.015, | | | | Shirley, | | 1.020, 1.025 | | | | POC | | | | | + + + + + + | Lot Number | [id number] | | | | + + + + + + | Expiration | 03/26/2021 | | | | | Date | | | | | + + + + + + + + | Specimen | + + | Urine | + + Lipase (01/20/2020 5:45 AM PDT) [...] as of July 17, | | [facility] | | | | 2019. Check reference | | MEDICAL | | [...] ST. | [address] | [place] | [phone] | | [facility] | | [address] | | | - LABORATORY | | [...] | | | | | mg/dL | [facility] | | | | | | MEDICAL | | | | | | CENTER - | | | | | | LABORATORY | | + + + + + + | eGFR, | >60Comment: GLOMERULAR | >=60 | [facility] | | | non- | FILTRATION | mL/min/1.73m2 | [facility] | | | [place] | RATE,ESTIMATED | | MEDICAL | | | | mL/min/1.55i9Rsom than | | CENTER - | | [...] | | | FILTRATION | mL/min/1.73m2 | [facility] | | | [place]ic | RATE,ESTIMATED | | MEDICAL | | | | mL/min/1.53b2Genn than | | CENTER - | | [...] | | | | | mg/dL | [facility] | | | | | | MEDICAL | | | | | | CENTER - | | | | | | LABORATORY | | + + + + + + | Albumin | 4.4 | 3.2 - 4.8 g/dL | [facility] | | | | | | [facility] | | | | | | MEDICAL | | | | | | CENTER - | | | | | | LABORATORY | | + + + + + + | Bilirubin | 0.4 | 0.3 - 1.2 mg/dL | [facility] | | | Total | | | [facility] | | | [...] ST. | [address] | [place] | [phone] | | [facility] | | [address] | | | - LABORATORY | | | | + + + + + CBC with Differential (01/20/2020 5:45 AM PDT) + + + [...] | Cells | | M/uL | [facility] | | | | | | MEDICAL | | | | | | CENTER - | | | | | | LABORATORY | | + + + + + + | Hemoglobin | 13.7 | 11.5 - 16.0 | [facility] | | | | | g/dL | [facility] | | | | [...] | Neutrophils | | K/uL | [facility] | | | | | | MEDICAL | | | | | | CENTER - | | | | | | LABORATORY | | + + + + + + | Absolute | 1.84 | 0.60 - 3.20 | [facility] | | | Lymphocytes | | K/uL | [facility] | | | | | | MEDICAL | | | | | | CENTER - | | | | | | LABORATORY | | + + + + + + | Absolute | 0.65 | 0.00 - 1.00 | [facility] | | | Monocytes | | K/uL | [facility] | [...] | | Basophils | | K/uL | [facility] | | | | | | MEDICAL | | | | | | CENTER - | | | | | | LABORATORY | | + + + + + + | Absolute | 0.02Comment: For | 0.00 - 0.03 | [facility] | | | Immature | patients, use | K/uL | [facility] | | | Granulocyte | the special reference | | MEDICAL | | | s | ranges listed below. | | CENTER - | | | | | | LABORATORY | | + + + + + + | % nRBC | 0 | 0 - 2 per 100 | [facility] | | | | | WBCs | [facility] | | | | | | MEDICAL | | | | | | CENTER - | | | | | | LABORATORY | | + + + + + + | Absolute | 0.00 | 0.00 - 0.01 | [facility] | | | nRBC | | K/uL | [facility] | [...] ranges: Trim. Absolute (K/uL) Percentage (%) | [facility] | | 1st 0.003-0.091 K/uL 0.0-0.9% 2nd 0.007-0.247 K/uL | MEDICAL CENTER | | 0.1-2.0% 3rd 0.018-0.456 K/uL 0.1-2.0% | - LABORATORY | + + + + + + + + | Performing | Address | City/State/Zipcode | Phone Number | | Organization | | | | + + + + + | [facility] | [address] | [place] | [phone] | | [facility] | | [address] | | | - LABORATORY | | | | + + + + + documented in this encounter Visit Diagnoses + + | Diagnosis | + + | Biliary colic - Primary Calculus of gallbladder without mention of cholecystitis or | | obstruction | + + | Calculus of gallbladder without cholecystitis without obstruction Calculus of | | gallbladder without mention of cholecystitis or obstruction | + + documented in this encounter Administered Medications + +--------+ +--------+------+------+ | Medication Order | MAR | Action | Dose | Rate | Site | | | Action | Date | | | | + +--------+ +--------+------+------+ | fentaNYL (PF) injection 50 mcg | Given | 01/20/20 | 50 mcg | | | | 50 mcg, Intravenous, EVERY 1 | | 20 5:51 | | | | | HOUR PRN, Pain, Starting Tue | | AM PDT | | | | | 01/20/20 at 0539, For 2 doses | | | | | | + +--------+ +--------+------+------+ +---+---+ | | | +---+---+ + +-------+ +------+---+---+ | ondansetron (ZOFRAN) injection | Given | 01/20/20 | 4 mg | | | | 4 mg 4 mg, Intravenous, EVERY 1 | | 20 5:51 | | | | | HOUR PRN, Nausea, Vomiting, | | AM PDT | | | | | Starting 01/20/20 at 0539, For | | | | | | | 2 doses | | | | | | + +-------+ +------+---+---+ +---+---+ | | | +---+---+ + +---------+ +--------+-------+---+ | sodium chloride 0.9% (NS) bolus | New Bag | 01/20/20 | 1,000 | 2000 | | | 1,000 mL 1,000 mL, Intravenous, | | 20 5:51 | mLs | mL/hr | | | Administer over 30 Minutes, | | AM PDT | | | | | ONCE, Tusalud 01/20/20 at 0545, For 1 | | | | | | | dose | | | | | | + +---------+ +--------+-------+---+ +---+---+ | | | +---+---+ documented in this encounter
--- OUTSIDE RECORDS SUMMARY | ~2020-01-20 | XMS | Encounter Summary ---
Demographics + + + | Address | [address] [place] [address] St | | | [place] [address] | + + + | Home Phone | | + + + | Preferred Language | Unknown | + + + | Marital Status | | + + + | Jew Affiliation | Unknown | + + + | Race | White | + + + | Ethnic Group | Not or | + + + Author + + + | Author | [facility] | | | and [place] | + + + | Organization | [facility] | | [...] Team Providers + +------+ + | Care Mapper Name | Role | Phone | + +------+ + | Paige Woods MD | PCP | | + +------+ + Reason for Visit + + + | Reason | Comments | + + + | Pelvic Pain | Exam 3 - Pelvic pain, urinary frequency. Negative test | | | x 4. Requesting serum HCG. Last period unknown. Hx of irregular | | | cycles. Currently has Mirena IUD | + + + Encounter Details +--------+---------+ + + + | Date | Type | Department | Care Team | Description | +--------+---------+ + + + | 10/26/ | Office | [facility] | Barry Magaña | Right lower quadrant | | 2020 | Visit | [facility] [address] [place] | MD Mehdi [address] | abdominal pain | | | | [place] | [place] | (Primary Dx); | | | | [id number] | [id number] | Irregular menses; | | | | [phone] | | IUD (intrauterine | | | | | | device) in place | +--------+---------+ + + + Social History + +-------+ [...] + + + | Blood Pressure | 129/91 | 10/27/2019 12:53 PM | | | | | PDT | | + + + + + | Pulse | 84 | 10/27/2019 12:53 PM | | | | | PDT | | + + + + + | Temperature | 37.4 C (99.3 F) | 10/27/2019 12:53 PM | | | | | PDT | | + + + + + | Respiratory Rate | 18 | 10/27/2019 12:53 PM | | | | | PDT | | + + + + + | Oxygen Saturation | 100% | 10/27/2019 12:53 PM | | | | | PDT | | + + + + + | Inhaled Oxygen | - | - | | | Concentration | | | | + + + + + | Weight | - | - | | + + + + + | Height | - | - | | + + + + + | Body Mass Index | - | - | | + + + + + documented in this encounter Patient Instructions Patient Instructions Barry Magaña MD - 10/27/2019 11:15 AM PDTDrink plenty of flui ds and rest. Take Tylenol or ibuprofen as needed for discomfort. We will call with lab results once available. Follow-up with your PCP in [facility] within the week. Return or report to the emergency room with any progressive abdominal pain, fever, vomiting , dysuria, bloody or black tarry stools. Unknown Causes of Abdominal Pain(Female) The exact cause of your belly (abdominal) pain is not clear. This does not mean that this i s something to worry about. Everyone likes to know the exact cause of the problem. But somet imes with belly pain, there is no clear-cut cause, and this could be a good thing. The good news is that your symptoms can be treated, and you will feel better. Your condition does not seem serious now. But sometimes the signs of a serious problem may take more time to appear. For this reason,it is important for you to watch for any new sym ptoms, problems,or worsening of your condition. Over the next few days, the abdominal pain may come and go. Or it may be constant. Other co mmon symptoms can include nausea and vomiting. Sometimes it can be difficult to tell if you feel nauseous. You may just feel bad and not connect that feeling to nausea. Constipation, d iarrhea, and a fever may go along with the pain. The pain may continue even if treated correctly over the following days. Depending on how t hings go, sometimes the cause can become clear and may need moreor different treatment. Ad ditional evaluations, medicines, or tests may also be needed. Home care Your healthcare provider may prescribe medicine for pain, symptoms, or an infection. Foll ow the healthcare provider's instructions for taking these medicines. General care Rest as much as you can until your next exam. No strenuous activities. Try to find positions that ease discomfort. A small pillow placed on the abdomen may hel p relieve pain. Something warm on your abdomen (such as a heating pad) may help, but be careful not to b urn yourself. Diet Don tforce yourself to eat, especially if having cramps, vomiting, or diarrhea. Water is important so you don't get dehydrated. Soup may also be good. Sports drinks may also help, especially if they are not too acidic. Don't drink sugary drinks as this can rip e things worse. Take liquids in small amounts. Don tguzzle them. Caffeine sometimes makes the pain and cramping worse. Don t takedairy products if you have vomiting or diarrhea. Don't eat large amounts at a time. Wait a few minutes between bites. Eat a diet low in fiber (called a low-residue diet). Foods allowed include refined bread s, white rice, fruit and vegetable juices without pulp, tender meats. These foods will pass more easily through the intestine. Don t havewhole-grain foods, whole fruits and vegetables, meats, seeds and nuts, fri ed or fatty foods, dairy, alcohol and spicy foods until your symptoms go away. Follow-up care Follow up with your healthcare provider, or as advised, if your pain does not begin to impr ove in the next 24 hours. Call [phone] [id number] if any of these occur: Trouble breathing Confusion Fainting or loss of consciousness Rapid heart rate Seizure When to seek medical advice Call your healthcare provider right away if any of these occur: Pain gets worse or moves to the right lower abdomen New or worsening vomiting or diarrhea Swelling of the abdomen Unable to pass stool for more than3 days Fever of 100.4F (38C) or higher, or as directed by your healthcare provider. Blood in vomit or bowel movements (dark red or black color) Yellow color of eyes and skin (jaundice) Weakness, dizziness Chest, arm, back, neck, or jaw pain Unexpected vaginal bleeding or missed period Can't keep down liquids or water and you are getting dehydrated [employer] last reviewed this educational content on 10/19/201719999459-9581 [employer]. [address] [place] [address]. All righ ts reserved. This information is not intended as a substitute for professional medical care. Always follow your healthcare professional's instructions. documented in this encounter Progress Notes Queenie Louis, Crane Hoist Or Lift Operator - 10/27/2019 11:15 AM PDTAfter verifying pt's name and performed venipuncture per Dr. Magaña's orders. Pt tolerated well with no immedi ate concerns 21G/1Stick/LAC/3Tubes-Lavender, Light Green, and Gold chw Barry fernandez MD - 10/27/2019 11:15 AM PDTFormatting of this note might be different fro m the original. Subjective: Chief Complaint: Pelvic Pain (Exam 3 - Pelvic pain, urinary frequency. Negative t est x 4. Requesting serum HCG. Last period unknown. Hx of irregular cycles. Currently has Mi zana IUD) HPI: Florence is a 29 y.o. female who presents for possible UTI. No history of dysuria, has urinar y frequency without urgency without hematuria. Has RLQ pain for 10 days. Still has appendix. No suprapubic discomfort and no flank pain. Pain is intermittent in the right lower quadra nt. No fevers, chills, nausea or vomiting. She is eating and drinking normally with a norm al appetite. She had a normal, formed bowel movement this morning without bloody or black t arry appearance. No current vaginal bleeding, has different vaginal discharge without odor or change in color. No dyspareunia. Last menstrual period was months ago. Had vaginal spott ing 6 weeks ago. No change for years History of irregular cycles. She has a Mirena IUD and has had 4 neg urine tests. Patient is sexually active and is monogamous for >3 m onths. Florence has no hx of prior similar. Has had UTI's which feel different. Last UTI was 4 years ago. No other complaints. 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 Her PCP is in [facility]. It is most important that she has a serum screen t o anxiety. She reports having had a patient in the past with negative urine test with an positive ectopic . No prior history of , ectopic or otherwise. Patient's medications, allergies, past medical, surgical, social and family histories were reviewed and updated as appropriate. Review of Systems Constitutional: Negative for chills, diaphoresis, fever and malaise/fatigue. HENT: Negative for congestion, ear pain, sinus pain and sore throat. Eyes: Negative for pain and discharge. Respiratory: Negative for cough, sputum production and shortness of breath. Cardiovascular: Negative for chest pain, palpitations and leg swelling. Gastrointestinal: Positive for abdominal pain. Negative for blood in stool, constipation, d iarrhea, melena, nausea and vomiting. Genitourinary: Positive for frequency. Negative for dysuria, flank pain, hematuria and urge ncy. Musculoskeletal: Negative for back pain and falls. Skin: Negative for itching and rash. Neurological: Negative for dizziness, focal weakness and weakness. Endo/Heme/Allergies: Does not bruise/bleed easily. Psychiatric/Behavioral: The patient is nervous/anxious and has insomnia. Objective: BP (!) 129/91 | Pulse 84 | Temp 37.4 C (99.3 F) (Temporal) | Resp 18 | LMP (LMP Un known) | SpO2 100% General Appearance: Alert, cooperative, obese, young female, appears well, in no distress, appears stated age. HEENT: Clear, pink conjunctiva, moist oral membranes. Chest: Completely clear to auscultation. Air movement. Cardiac: Quiet precordium, regular rhythm without murmur. Abdomen: Flat with normally active bowel sounds, soft, nontender throughout to deep palpati on, No SP fullness. No tenderness to deep palpation in the right lower quadrant. No reboun d tenderness or guarding, no masses, no organomegaly. Back: No CVA tenderness to percussion. Pelvic exam and BD affirm swab were declined by the patient. Skin: Skin color normal, no rashes, warm and dry. Results for orders placed or performed in visit on 10/27/19 C-Reactive Protein Result Value Ref Range C-Reactive Protein <2.0 0.0 - 9.0 mg/L CBC with Differential Result Value Ref Range WBC 6.7 4.0 - 11.0 K/uL RBC 4.75 3.70 - 5.20 M/uL Hemoglobin 14.3 11.5 - 16.0 g/dL Hematocrit 40.3 34.0 - 47.0 % MCV 84.8 83.0 - 101.0 fL MCH 30.1 28.0 - 35.0 pg MCHC 35.5 32.0 - 36.0 g/dL RDW-CV 11.7 <15.0 % RDW-SD 37.0 35.1 - 46.3 fL Platelet Count 201 140 - 440 K/uL MPV 10.7 6.5 - 12.4 fL % Neutrophils 66.1 45.0 - 82.0 % % Lymphocytes 24.4 20.0 - 45.0 % % Monocytes 7.3 4.0 - 12.0 % % Eosinophils 1.8 0.0 - 5.0 % % Basophils 0.3 0.0 - 1.0 % % Immature Granulocytes 0.1 0.0 - 0.4 % Absolute Neutrophils 4.45 1.80 - 8.50 K/uL Absolute Lymphocytes 1.64 0.60 - 3.20 K/uL Absolute Monocytes 0.49 0.00 - 1.00 K/uL Absolute Eosinophils 0.12 0.00 - 0.40 K/uL Absolute Basophils 0.02 0.00 - 0.10 K/uL Absolute Immature Granulocytes 0.01 0.00 - 0.03 K/uL , Serum, Qual Result Value Ref Range hCG Screen, Serum Negative Negative POCT Urinalysis Result Value Ref Range Color, UA, POC Yellow Yellow, Light Yellow Clarity, UA, POC Clear Glucose, UA, POC Negative Negative Bilirubin, UA, POC Negative Negative Ketones, UA, POC Negative Negative, 100 mg/dL Specific [place], UA, POC 1.025 1.001 - 1.030 Blood, UA, POC Negative Negative pH, UA, POC 7.0 5.0, 6.0, 7.0, 8.0, 5.5, 6.5, 7.5 Protein, UA, POC Negative Negative Urobilinogen, UA, POC 0.2 0.2, Negative, Normal, < 0.2 mg/dL, 1 mg/dL, < 0.2 E.U./dl, 1.0 E.U./dL, 0.2 mg/dL Nitrite, UA, POC Negative Negative Leukocyte Esterase, UA, POC Negative Negative Remark POCT Test, Urine, QUAL Result Value Ref Range Test, Urine, POC Negative Negative Internal QC Acceptable Acceptable Specific [place], POC Lot Number [id number] Expiration Date 05.23.2020 Assessment and Plans: 1. Right lower quadrant abdominal pain POCT Urinalysis POCT Test, Urine, QUAL C-Reactive Protein CBC with Differential C. trachomatis and N. gonorrhoeae, NAAT (APTIMA) , Serum, Qual 2. Irregular menses 3. 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 Exam is entirely benign except for mild angst. The patient refused pelvic examination, BD affirm swab and used to wait for lab and wished t o be called with results. She was given the following instructions. Plan: Drink plenty of fluids and rest. Take Tylenol or ibuprofen as needed for discomfort. We will call with lab results once available. Follow-up with your PCP in [facility] within the week. Return or report to the emergency room with any progressive abdominal pain, fever, vomiting , dysuria, bloody or black tarry stools. Barry Magaña MD documented in th is encounter Plan of Treatment Not on filedocumented [...] + + documented in this encounter Results , Serum, Qual (10/27/2019 1:31 PM PDT) [...] + + | [facility] | [address] | [place] | [phone] | | [facility] | | [address] | | | [facility] | | | | + + + + + CBC with Differential (10/27/2019 1:31 PM PDT) + + + + + + | Component | Value | Ref Range | Performed | Pathologist | | | | | At | Signature | + + + + + + | White Blood | 6.7 | 4.0 - 11.0 K/uL | [facility] | | | Cells | | | [facility] | | | | | | [facility] | | | | | | [facility] | | | [facility] | | + + + + + + | Red Blood | 4.75 | 3.70 - 5.20 | [facility] | | | Cells | | M/uL | [facility] | | | | | | [facility] | | | | | | [facility] | | | | [facility] | | + + + + + + | Hemoglobin | 14.3 | 11.5 - 16.0 | [facility] | | | | | g/dL | [facility] | | | | | | [facility] | | | | | | [facility] | | | | | [facility] | | + + + + + + | Hematocrit | 40.3 | 34.0 - 47.0 % | [facility] | | | | | | [facility] | | | [facility] | [facility] | | | | | [facility] | | + + + + + + | MCV | 84.8 | 83.0 - 101.0 fL | [facility] | | | | | | [facility] | | | | | [facility] | | | | | [facility] | | + + + + + + | MCH | 30.1 | 28.0 - 35.0 pg | [facility] | | | | | | [facility] | | | | | [facility] | | | | | | [facility] | | | | [facility] | | + + + + + + | MCHC | 35.5 | 32.0 - 36.0 | [facility] | | | | | g/dL | [facility] | | | | | [facility] | | | | | | [facility] | | | | | [facility] | | + + + + + + | RDW-CV | 11.7 | <15.0 % | [facility] | | | | | | [facility] | | [facility] | [facility] | | | | | | [facility] | | + + + + + + | RDW-SD | 37.0 | 35.1 - 46.3 fL | [facility] | | | | | | [facility] | | [facility] | [facility] | | | | | [facility] | | + + + + + + | Platelet | 201 | 140 - 440 K/uL | [facility] | | | Count | | | [facility] | | | | | [facility] | | | | | | [facility] | | + + + + + + | MPV | 10.7 | 6.5 - 12.4 fL | [facility] | | | | | | [facility] | | [facility] | [facility] | | | | | [facility] | | + + + + + + | % | 66.1 | 45.0 - 82.0 % | [facility] | | | Neutrophils | | | [facility] | | | | | | [facility] | | | | | | [facility] | | | | [facility] | | + + + + + + | % | 24.4 | 20.0 - 45.0 % | [facility] | | | Lymphocytes | | | [facility] | | | | | [facility] | | | | | | [facility] | | + + + + + + | % Monocytes | 7.3 | 4.0 - 12.0 % | [facility] | | | | | | [facility] | | | | | [facility] | | | | | | [facility] | | [facility] | | + + + + + + | % | 1.8 | 0.0 - 5.0 % | [facility] | | | Eosinophils | | | [facility] | | | | | | [facility] | | | | | | [facility] | | | | | [facility] | | + + + + + + | % Basophils | 0.3 | 0.0 - 1.0 % | [facility] | | | | | | [facility] | | | | | [facility] | | | | | | [facility] | | | | | [facility] | | + + + + + + | % Immature | 0.1Comment: For | 0.0 - 0.4 % | [facility] | | | Granulocyte | patients, use the | | [facility] | | | s | special reference ranges | | [facility] | | | | listed below. | | [facility] | | | | | [facility] | | + + + + + + | Absolute | 4.45 | 1.80 - 8.50 | [facility] | | | Neutrophils | | K/uL | [facility] | | | | | | [facility] | | | | | | [facility] | [facility] | | + + + + + + | Absolute | 1.64 | 0.60 - 3.20 | [facility] | | | Lymphocytes | | K/uL | [facility] | | | | | | [facility] | | | | | | [facility] | | | | | [facility] | | + + + + + + | Absolute | 0.49 | 0.00 - 1.00 | [facility] | | | Monocytes | | K/uL | [facility] | | | | | | [facility] | | | | | | [facility] | | | | | [facility] | | + + + + + + | Absolute | 0.12 | 0.00 - 0.40 | [facility] | | | Eosinophils | | K/uL | [facility] | | | | | | [facility] | | | | | | [facility] | | | | | | [facility] | | + + + + + + | Absolute | 0.02 | 0.00 - 0.10 | [facility] | | | Basophils | | K/uL | [facility] | | | | | | [facility] | | | | | | [facility] | | | | | | [facility] | | + + + + + + | Absolute | 0.01Comment: For | 0.00 - 0.03 | [facility] | | | Immature | patients, use | K/uL | [facility] | | | Granulocyte | the special reference | | MEDICAL | | | s | ranges listed below. | | [facility] | | | | | | [facility] | | + + + + + + + + | Specimen | + + | Blood | + + + + + | Narrative | Performed At | + + + | IMMATURE GRANULOCYTES - For patients, use the following | [facility] | | reference ranges: Trim. Absolute (K/uL) Percentage (%) | [facility] | | 1st 0.003-0.091 K/uL 0.0-0.9% 2nd 0.007-0.247 K/uL | [facility] | | 0.1-2.0% 3rd 0.018-0.456 K/uL 0.1-2.0% | LAB[facility]AT[facility] | + + + + + + + + | Performing | Address | City/State/Zipcode | Phone Number | | Organization | | | | + + + + + | [facility] | [address] | [place] | [phone] | | [facility] | | [address] | | | [facility] | | [...] | + + + + + | [facility] | [address] | [place] | [phone] | | [facility] | | [address] | | | [facility] | | [...] + + | Performed at: 01 - [facility] [place] [address], | REFERENCE LAB | | [place], [place] [id number] Asphalt Plant Operator: Mauricio Oscar MD, Phone: | CLEMENT DYER | | [phone] | | + + + + + + + + | Performing | Address | City/State/Zipcode | Phone Number | | Organization | | | | + + + + + | [facility] | [address] | [place], [place] | [phone] | | [facility] | [address] [facility] | [address] | | + + + + + POCT Test, Urine, QUAL (10/27/2019 1:20 PM PDT) + + + + + + | Component | Value | Ref Range | Performed | Pathologist | | | | | At | Signature | + + + + + + | | Negative | Negative | [facility] | | | Test, | | | [facility] | | | Urine, POC | | | [facility] | | | | | | MED[facility] | | | | | | CENTER | | | | | | LABORATORY | | | | | | [facility] | | + + + + + + | Internal QC | Acceptable | Acceptable | [facility] | | | | | | [facility] | | | | | | [facility] | | | | | | [facility] | | | | | | [facility]ENTER | | | | | | LABORATORY | | | | | | [facility] | | + + + + + + | Specific | | | [facility] | | | [place], | | | [facility] | | | POC | | | HE[facility] | | | | | | MEDICAL | | | | | | CENTER | | | | | | LABORATORY | | | | | | [facility] | | + + + + + + | Lot Number | [id number] | | [facility] | | | | | | [facility] | | | | | | [facility] | | | | | | [facility] | | | | | | [facility]ENTER | | | | | | LABORATORY | | | | | | [facility] | | + + + + + + | Expiration | 05.23.2020 | | [facility] | | | Date | | | [facility] | | | | | | [facility] | | | | | | [facility] | | | | | | CENTER | | | | | | LABORATORY | | | | | | [facility] | | + + + + + + + + | Specimen | + + | Urine | + + + + + + + | Performing | Address | City/State/Zipcode | Phone Number | | Organization | | | | + + + + + | [facility] | [address] [place] | [place] [address] | | | [facility] | | | | | [facility] | | | | + + + + + POCT Urinalysis (10/27/2019 1:20 PM PDT) + + + + + + | Component | Value | Ref Range | Performed | Pathologist | | | | | At | Signature | + + + + + + | Color, UA, | Yellow | Yellow, Light | | | [...] + + + + | Specific | 1.025 | 1.001 - 1.030 | | | | [place], | | | | | | UA, POC | | | | | + + + + + + | Blood, UA, | Negative | Negative | | | | POC | | | | | + + + + + + | pH, UA, POC | 7.0 | 5.0, 6.0, 7.0, | | | | | | 8.0, 5.5, 6.5, | | | | | | 7.5 | | | + + + + + + | Protein, | Negative | Negative | | | | UA, POC | | | | | + + + + + + | Urobilinoge | 0.2 | 0.2, Negative, | | | | [...] + + | Urine | + + documented in this encounter Visit Diagnoses + + | Diagnosis | + + | Right lower quadrant abdominal pain - Primary Abdominal pain, right lower quadrant | + + | Irregular menses Irregular menstrual cycle | + + | IUD (intrauterine device) in place Presence of intrauterine contraceptive device | + + documented in this encounter"
[~2020-01-20 12:17] MED LIST: CLINDAMYCIN HC300 MG PO; IBUPROFEN800 MG PO; NORCO 5-325 TA1 EACH PO; PRISTIQ ER100 MG PO; SYNTHROID50 MCG PO
--- NOTE | 2020-01-20 13:00 | NUR ---
PT TO FLOOR VIA OWN AMBULATION. PLACED 22G IV IN LEFT HAND, PT TOLERATED WELL. GIVEN LR BOLUS, ANCEF AND TORADOL FOR PAIN 6\10. VS STABLE.
--- NOTE | 2020-01-20 13:53 | NUR ---
1345 pt swabbed for covid-19 both nares without complication. sample taken to [facility].
[2020-01-20] MEDS ORDERED: ONDANSETRON ODT8 MG PO (14:45)
--- NOTE | 2020-01-20 15:00 | NUR ---
PT STATES SHE IS RESTING COMFORTABLY, TALKING ON PHONE.
[2020-01-20] MEDS ORDERED: IBUPROFEN200 MG PO (15:10)
--- NOTE | 2020-01-20 15:13 | NUR ---
MED REC COMPLETE
[2020-01-20] MEDS ORDERED: MIRENA1 EACH VAGINAL (16:49)
--- NOTE | 2020-01-20 17:23 | NUR ---
PATIENT RESTING IN BED. VITAL SIGNS AND I&O DONE. CALL LIGHT WITHIN REACH. NO OTHER NEEDS AT THIS TIME
--- NOTE | 2020-01-20 18:00 | NUR ---
PT RESTING IN BED SLEEPING AND LISTENING TO MUSIC. DENIES NEEDS OR CONCERNS.
--- NOTE | 2020-01-20 19:45 | NUR ---
took pt fresh ice water, vitals are done, i&os done, rn in to give meds,
--- NOTE | 2020-01-20 19:58 | NUR ---
CALL LIGHT ANSWERED. pt C/O 11/27 RIGHT UPPER QUADRANT, R SHOULDER PAIN. PRN PAIN MEDICATION ADMINISTERED. ASSESSMENT COMPLETE. BOWEL TONES ACTIVE. VSS. pt REFUSES SCDS. INDEPENDENT IN ROOM. DENIES NAUSEA. RE GREENE TO BRING pt CLEAR ENSURE, BEEF BROTH. CALL LIGHT IN REACH. BLANKET PROVIDED.
--- NOTE | 2020-01-20 21:58 | NUR ---
pt RESTING IN BED AWAKE. RATES PAIN 2/10 IN ABDOMEN "I'M OKAY RIGHT NOW". REQUESTING TO WAIT FOR PRN TORADOL ADMINISTRATION. IV ANTIBIOTIC INFUSING ORDERED. NEW BAG IVF INFUSING. CALL LIGHT IN REACH. NO ADDITIONAL REQUESTS.
--- NOTE | 2020-01-21 02:37 | NUR ---
ASSESSMENT COMPLETE. PT REQUESTS PRN TORADOL FOR HEADACHE PAIN OF 5/10 WHICH IS PROVIDED.CALL LIGHT WITHIN REACH. NO FURTHER NEEDS AT THIS TIME.
--- NOTE | 2020-01-21 06:09 | NUR ---
took pt vitals, i&os in, left pt to rest, call light in reach, no further request at this time
--- NOTE | 2020-01-21 06:11 | NUR ---
PT HAD A GOOD NIGHT ONLY REQUIRING MINIMAL PRN PAIN MEDS. URINE OUTPUT IS GOOD. PT IS INDEPENDENT IN ROOM AND CALLS APPROPRIATELY. CONSENT IS SIGNED FOR UPCOMING PROCEDURE TODAY.
--- NOTE | 2020-01-21 06:39 | NUR ---
CALL LIGHT ANSWERED. PT C/O NAUSEA. CALL IN TO DR CAMPBELL FOR ORDER FOR ANTINAUSEA MED. ZOFRAN 4MG Q6 PRN ORDERED AND FIRST DOSE ADMINISITERED. PT ALSO REPORTED THAT HER HEADACHE IS NOT BETTER FOLLOWING PRN TORADOL AT 0200. OFFERED PT DILAUDID BUT PT FEELS THE HEADACHE IS POSSIBLY FROM THE DILAUDID EARLIER IN THIS SHIFT. PT TO TRY ZOFRAN NOW AND DETERMINE IF FURTHER MEDS ARE NEEDED.
--- NOTE | 2020-01-21 07:08 | NUR ---
Recieved report from OLIVIA Hamm. Patient lying on back with eyes covered, respirations even and unlabored. Allowed to rest at this time. Call light in reach, bed rails up X2.
--- NOTE | 2020-01-21 08:23 | PATH ---
[facility] [address] [facility] [place], [place] [address] Signed ORDERING PHYSICIAN: Alvarez Alonso MD PATIENT NAME: EDEL CALDWELL GENDER: Frances : 1990 SPECIMEN(S): MOLECULAR PATHOLOGY RESULTS: SARS-CoV-2 Not Detected ADDITIONAL NOTES.: The [place] Fusion SARS-CoV-2 Assay is a multiplex real-time PCR (RT-PCR) in vitro diagnostic test intended for the qualitative detection of RNA from SARS-CoV-2 from individuals who meet COVID-19 clinical and/or epidemiological criteria. In general, SARS-CoV-2 RNA can be detected during the acute phase of infection. Positive results indicate the presence of SARS-CoV-2 RNA. Clinical correlation with patient history and other diagnostic information is necessary to determine patient infection status. Positive results do not rule out bacterial infection or co-infection with other viruses. Negative results do not preclude SARS-CoV-2 infection and should not be used as the sole basis for patient management decisions. Negative results must be combined with other clinical observations, patient history, and epidemiological information. The [place] Fusion SARS-CoV-2 Assay is not yet approved or cleared by the [place] FDA. When there are no FDA-approved or cleared tests available, and other criteria are met, FDA can make tests available under an emergency access mechanism called an Emergency Use Authorization (EUA). The EUA for this test is supported by the [place] of Health and Human Service's (HHS's) declaration that circumstances exist to justify the emergency use of in vitro diagnostics for the detection and/or diagnosis of the virus that causes COVID-19. This EUA will remain in effect for the duration of the COVID-19 declaration justifying emergency of IVDs, unless it is terminated or revoked by FDA, after which the test may no longer be used. The [place] Fusion SARS-CoV-2 Assay is for use only under EUA in US laboratories certified under the Clinical Laboratory Improvement Amendments of 1988 (CLIA) to perform high complexity tests. [facility] is certified under CLIA to perform high complexity PATIENT NAME: EDEL CALDWELL [facility] DATE OF : [birth year] REPORT #: [id number] PHYSICIAN: LAKEISHA HARRIS PCP: NO PRIMARY CARE PHYSICIAN REPORT IS CONFIDENTIAL AND NOT TO BE RELEASED WITHOUT AUTHORIZATION [address] [address] Signed clinical laboratory testing. PERFORMING LABORATORY.: Molecular testing was performed by [facility] [place] [address] (Core Machine Operator: Servando Pace D.O.; CLIA#: [id number]) Diagnostician: System Interface Pathologist Electronically Signed 01/21/2020 Copies: ~ PATIENT NAME: JAVIEDEL PATHOLOGY DATE OF : [birth year] REPORT #: [id number] PHYSICIAN: LAKEISHA HARRIS PCP: NO PRIMARY CARE PHYSICIAN REPORT IS CONFIDENTIAL AND NOT TO BE RELEASED WITHOUT AUTHORIZATION
--- NOTE | 2020-01-21 08:30 | NUR ---
GAVE PATIENT HIBICLENS WIPES AND NEW GOWN. CALL LIGHT WITHIN REACH. NO FURTHER NEEDS AT THIS TIME.
--- NOTE | 2020-01-21 08:42 | NUR ---
Informed patient of surgical procedure to be this AM. Staff will be in to take her at 0830. Patient verbalizes understanding. Call light in reach. AM medications given as prescribed. Patient wipe down information and wipes provided. Completed independently. New gown also provided. States head is still aching at this time. Denies other needs. Call light in reach. Bed rails up X2.
--- NOTE | 2020-01-21 08:44 | NUR ---
PATIENT TAKEN TO SURGERY IN BED BY SURGERY STAFF.
--- NOTE | 2020-01-21 08:58 | NUR ---
PATIENT IN SURGERY. I&O DONE.
--- NOTE | 2020-01-21 09:43 | HP ---
[facility] [address] [place], [place] [address] Signed ADMISSION DATE: 01/20/2020 REASON FOR ADMISSION: Acute calculous cholecystitis. 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 She lives in [place] and occasionally works also in [place], [place]. She has no primary care provider. Approximately two years ago, she was having symptoms highly suggestive of biliary disease. An ultrasound at that time was negative and a CCK-HIDA test showed a normal ejection fraction, but did have marked reproduction of her symptoms. She subsequently lost 80 pounds primarily by intermittent fasting and her symptoms seem to glenys. On that basis, she did not follow through with a plan for cholecystectomy has had been recommended. In the past few months, she has had increasing right subcostal pain. Notably, she did regain essentially all and possibly even more weight than she had lost before. Her pain was accelerating in recent times and this morning was severe enough. She presented to the emergency room at [facility] in [place]. Her emergency room evaluation was thorough and complete and included a gallbladder ultrasound, which showed a single large gallstone wedged in the infundibulum of the gallbladder. Her liver enzymes were normal including her white count. She preferred to have surgical intervention here with me and deferred a recommendation of surgical evaluation at [place] and was seen as a work-in patient this morning at approximately 11 o'clock. She was found on clinical examination to have marked tenderness in right subcostal area, but no mass. She was under the misapprehension that she had possibly a common bile duct stone, but subsequent evaluation of her medical records that I have undertaken showed actually that she has a large stone wedged in the infundibulum of the gallbladder. Notably, this is a marked change from two years ago, where there were no stones seen in the gallbladder at all. Her white count was noted to be normal at 6.3, hematocrit of 38.4, and platelets 192,000. PAST MEDICAL HISTORY: Remarkable primarily for obesity and headaches. Electronically Signed By: CLARI CAMPBELL MD 01/21/20 0943 PATIENT NAME: EDEL CALDWELL HISTORY AND PHYSICAL DATE OF : [birth year] REPORT #: [id number] PHYSICIAN: CLARI CAMPBELL MD PCP: NO PRIMARY CARE PHYSICIAN REPORT IS CONFIDENTIAL AND NOT TO BE RELEASED WITHOUT AUTHORIZATION [facility] [address] [place], [place] [address] Signed MEDICATIONS: Her current medications include: 1. Strattera 40 mg p.o. daily. 2. Mirena intrauterine device. 3. Topiramate (Topamax) 50 mg tablet. ALLERGIES: She has no known drug allergies. SOCIAL HISTORY: She is . 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 She has no children. She does not smoke or drink alcohol particularly. REVIEW OF SYSTEMS: She denies any shortness of breath or chest pain. She has persistent right subcostal pain radiating into the back. She has had no nausea or vomiting. Denies blood per rectum or hematemesis. PHYSICAL EXAMINATION: GENERAL: A very pleasant white woman, who does look to be quite uncomfortable. HEENT: Mucous membranes are slightly dry. Trachea is midline. CHEST: Clear. HEART: Regular, without murmur. ABDOMEN: Obese, but generally soft, but there is tenderness in the right subcostal area. There is no palpable mass. EXTREMITIES: Show no clubbing, cyanosis, or edema. LABORATORY STUDIES: From earlier today in the emergency room at [facility] showed white count of 6.3, hematocrit of 38.4, and platelets 192,000. Electrolytes are normal. Liver enzymes are normal. Alkaline phosphatase is 55, bilirubin total is 0.4. Lipase is 42. Urinalysis is negative. IMAGING DATA: Ultrasound of the gallbladder showed a stone in the neck of the gallbladder with wall thickening. There is no evidence of dilation of common bile duct. ASSESSMENT AND PLAN: The patient has clinical findings of acute calculous cholecystitis. She is directly admitted to the hospital for further management to include IV antibiotics, parenteral pain medication, IV fluid resuscitation, anticipating cholecystectomy likely tomorrow. The risks of bleeding, infection, bile duct injury, need for open procedure, and need Electronically Signed By: CLARI CAMPBELL MD 01/21/20 0943 PATIENT NAME: EDEL CALDWELL HISTORY AND PHYSICAL DATE OF : [birth year] REPORT #: [id number] PHYSICIAN: CLARI CAMPBELL MD PCP: NO PRIMARY CARE PHYSICIAN REPORT IS CONFIDENTIAL AND NOT TO BE RELEASED WITHOUT AUTHORIZATION [facility] [address] [place] [address] [place], [place] [address] Signed for other indicated procedures were reviewed in detail with her. Due to her advanced BMI, the possibility of open operation is also as always a consideration. We discussed the risks of bleeding, infection, bile duct injury, need for open procedure, and other unforeseen complications related to the surgery. She understands and wished to proceed. MD BLNAQUITA Law/MODL /[id number] Copies: ~ Electronically Signed By: CLARI CAMPBELL MD 01/21/20 0943 PATIENT NAME: EDEL CALDWELL HISTORY AND PHYSICAL DATE OF : [birth year] REPORT #: [id number] PHYSICIAN: CLARI CAMPBELL MD PCP: NO PRIMARY CARE PHYSICIAN REPORT IS CONFIDENTIAL AND NOT TO BE RELEASED WITHOUT AUTHORIZATION
--- NOTE | 2020-01-21 12:05 | NUR ---
Patient arrives in bed from surgery. IVF LR infusing at this time. Patient requests to ambulate to bathroom, 1 person, standby assist to bathroom. Continent of urine 850 mL. Tolerating PO fluids prior to arrival to floor. Requesting hot tea. Provided. Denies other needs at this time. SCD's replaced, LR infusing per orders, Call light in reach, bed rails up X2.
--- NOTE | 2020-01-21 12:13 | NUR ---
01/21/20 1213 Jo Ann Mclaughlin 1106 PT ARRIVED IN PACU SLEEPY WITH NO C/O'S. 1115 DR AT BEDSIDE TALKING WITH PT. 1130 C/O ACID REFLUX. ANESTHESIA AT BEDSIDE TALKING WITH PT. TAKING SIPS OF WATER. 1149 C/O ABD PAIN 08/28. FENTANYL 50MCG GIVEN IVP. C/O ACID REFLUX. SIPPING ON SPRITE. 1205 PAIN GONE AND ACID REFLUX "ALITTLE BETTER" PER PT. TO ROOM 115. REPORT GIVEN TO RN AND BED PLUGGED IN.
--- NOTE | 2020-01-21 12:37 | NUR ---
CALL LIGHT ANSWERED. PATIENT ASKS FOR PAIN AND NAUSEA MEDICATION. RN NOTIFIED. NO OTHER NEEDS AT THIS TIME
--- NOTE | 2020-01-21 12:52 | NUR ---
Head of bed elevated. Eyes closed. Requests PRN medication for nausea and pain. See EMAR. No active bleeding noted. Incision sites remain unchanged at this time. Denies other needs at this time. Call light in reach. Bed rails up X2.
--- NOTE | 2020-01-21 13:09 | NUR ---
PATIENT RESTING IN BED. VITAL SIGNS AND I&O DONE. CALL LIGHT WITHIN REACH. NO OTHER NEEDS AT THIS TIME
--- NOTE | 2020-01-21 13:19 | NUR ---
PT TAKEN TO SURGERY, WILL FOLLOW UP UPON RETURN FROM PACU
--- NOTE | 2020-01-21 13:52 | NUR ---
PT BACK FROM PACU. SITTING UP IN BED, HOLDING PILLOW OVER ABDOMEN. PAIN AT 4 AND DEALING WITH SOME NAUSEA. EMESIS BAG ON LAP. GAVE BLESSING AND LET PT KNOW I WOULD CHECK BACK TOMORROW. SHE SMILED AND THANKED ME
--- NOTE | 2020-01-21 14:01 | NUR ---
Patient remains nauseous at this time. PRN medication given. Denies other needs at this time. No changes to asessment noted at this time.
--- NOTE | 2020-01-21 15:03 | NUR ---
Patient ambulating in hallway independently.
--- NOTE | 2020-01-21 15:23 | NUR ---
Patient up in room. States nausea has resolved. Crackers provided per patient request. Denies other needs at this time.
--- NOTE | 2020-01-21 16:40 | NUR ---
Patient head of bed elevated. Eyes closed. Respirations even and unlabored. SPouse at bedside. Allowed to rest at this time.
--- NOTE | 2020-01-21 17:43 | NUR ---
Patient had angely mejia completed today. Since returning to floor, patient has had nausea that has improved with medication. Pain that has improved with PRN medications. Patient has ambulated approximately 600 feet twice. Tolerating clear liquids. IV fluids continue infusing. Tolerating very small amounts of solids as well.
--- NOTE | 2020-01-21 17:46 | NUR ---
PATIENT RESTING IN BED. VISITING WITH FAMILY IN THE ROOM. CALL LIGHT WITHIN REACH. NO FURTHER NEEDS AT THIS TIME.
--- NOTE | 2020-01-21 19:14 | NUR ---
PHONE CALL FROM MD, UPDATED ON pt STATUS. MD STATE pt WILL STAY OVERNIGHT FOR ANTIBIOTIC ADMINISTRATION, MONITORING.
--- NOTE | 2020-01-22 00:54 | NUR ---
RESTING, WERING EYE MASK, NO RESP DISTRESS, ON ROOM AIR, IVF INFUSING W/O PROBLEMS, NO C/O PAIN OR N/V, TURNS SELF IN BED. FAMILY ROOMING IN
--- NOTE | 2020-01-22 02:31 | NUR ---
COOP WITH VITALS AND ASSESSMENT, AND SOFT, TENDER, 4 ABD LAP SITES W SS. PASSING GAS AND BURPING. IVF INFUSING, MEDICATED WITH TYLENOL 1000MG PO 3/10ABD PAIN
--- NOTE | 2020-01-22 06:15 | NUR ---
HAS SLEPT MOST OF THIS SHIFT. HAS BEEN MEDICATED WITH TORADOLX1, MOTRIN X1 AND TYLENOL X1, EFFECTIVE. 4 LAP SITES R ABD AND UMBILICAL AREA, WITH OLD DRAINAGE. TENDER, BRANDON, PASSING GAS AND BURPING. HAD WALKED SEVERAL TIMES AROUND HALLWAYS, TOLERATING WELL, NO C/O N/V, TOLERATING DIET WELL. NO C/O ADVERSER EACTION TO IVF/ABX. USES CALL LIGHT APROPRIATELY
[2020-01-22] MEDS ORDERED: ACETAMINOPHEN500 MG PO (08:58)
--- NOTE | 2020-01-22 09:34 | NUR ---
MORNING ASSESSMENT AND MEDICATION DUE. PT READY FOR DISCHRAGE. PT REPORTS 0/10 PAIN THAT GOES UP TO 3/10 IF SHE MOVES TOO QUICKLY. PT AGREES TO TAKE TYLENOL FOR PAIN CONTROL DURING HER RIDE HOME. SEE MAR FOR MEDICATION GIVEN. ASSESSMENT DONE. LUNG SOUNDS CLEAR. STERI STRIPS INTACT OVER 4 LAPAROSCOPIC SITES ON ABDOMEN. NO NEW DRAINAGE NOTED, EDGES WELL APROXIMATED. BOWEL TONES ACTIVE. PT REPORTS SHE IS PASSING GAS. PT DENIES NAUSEA AND FINISHED BREAKFAST THIS MORNING WITH GOOD APPITITE. PT DRESSES SELF, STEADY ON FEET WITH STAND BY ASSIST. PHARMACIST TO BEDSIDE TO REVIEW DISCHARGE MEDICATIONS, PT STATES HER QUESTIONS HAVE BEEN ANSWERED. VITALS TAKEN. IV DC'D PER PROTOCOL, GAUZE AND COBAN APPLIED. DISCHARGE INSTRUCTIONS REVIEWED WITH PT. PT VERBALIZES UNDERSTANDING OF INSTRUCTIONS, WEIGHT LIFTING RESTRICIONS, MEDICATIONS AND FOLLWO UP APPOINTMENT. PT WHEELED FROM UNIT WITH FAMILY BY GLOBAL MARKETING OPERATIONS MANAGER. PT VERNA ADDITIONAL QUESTIONS OR CONCERNS.
--- NOTE | 2020-01-22 14:49 | PATH ---
[facility] [address] [facility] [place], [place] [address] Signed SPECIMEN(S): A GALLBLADDER AND STONE SPECIMEN SOURCE: A. GALLBLADDER AND STONE CLINICAL HISTORY: Acute cholecystitis, cholelithiasis. FINAL PATHOLOGIC DIAGNOSIS: Gallbladder and stone: - Chronic calculous cholecystitis. - Mucosal cholesterolosis. JVR:cml:C2NR MICROSCOPIC EXAMINATION: Histologic sections of all submitted blocks are examined by light microscopy. These findings, together with the gross examination, support the pathologic diagnosis. GROSS DESCRIPTION: The specimen, labeled "AF, A.," and designated on the requisition "gallbladder and stone," is received in formalin and consists of Specimen: Previously opened gallbladder. Dimensions: 8.0 x 4.2 x 1.5 cm. Serosa: Violaceous and smooth. Cystic Duct: Unobstructed. Calculi: One smooth, green calculus measuring 1.6 x 1.3 x 1.2 cm. Mucosa: Lockhart-pink with yellow flecking. Wall thickness: Up to 0.7 cm. Lymph node: No pericystic lymph nodes are grossly identified. Additional: None. Head Of Talent Management sections are submitted in cassette (A1). AT (under the direct supervision of a pathologist) The Gross Description was prepared using a voice recognition system. The report was reviewed for accuracy; however, sound-alike word errors, addition and/or deletions may occur. If there is any question about this report, please contact Client Services. PERFORMING LABORATORY: The technical component was performed by [email or web address], [address] [place] [id number] ([facility] [place]: Mely Gee MD; CLIA# [id number]). PATIENT NAME: EDEL CALDWELL PATHOLOGY DATE OF : [birth year] REPORT #: [id number] PHYSICIAN: LAKEISHA PATHOLOGY PCP: NO PRIMARY CARE PHYSICIAN REPORT IS CONFIDENTIAL AND NOT TO BE RELEASED WITHOUT AUTHORIZATION [facility] [address] [place], [place] [address] Signed Professional interpretation was performed [email or web address] [address] ([facility] [place]: Jaswinder Dickey M.D.). Diagnostician: Jaswinder Dickey MD Pathologist Electronically Signed 01/22/2020 Copies: ~ PATIENT NAME: EDEL CALDWELL PATHOLOGY DATE OF : [birth year] REPORT #: [id number] PHYSICIAN: LAKEISHA PATHOLOGY PCP: NO PRIMARY CARE PHYSICIAN REPORT IS CONFIDENTIAL AND NOT TO BE RELEASED WITHOUT AUTHORIZATION
--- NOTE | 2020-01-22 18:32 | DS ---
[facility] [address] [place], [place] [address] Signed ADMISSION DATE: 01/20/2020 DISCHARGE DATE: 01/22/2020 REASON FOR ADMISSION: Acute calculous cholecystitis. 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 She is known to me from 2 years ago, having had biliary colic symptoms and evaluated with ultrasound showing no stones and a CCK HIDA test showing an ejection fraction of 79%, but with reproduction of her symptoms. I had recommended laparoscopic cholecystectomy, however, she embarked upon a weight loss program losing nearly 80 pounds and intermittent fasting and her symptoms seem have to resolved. Unfortunately, her weight has largely returned over time in fact she is heavier now than she was then. She has had accelerating symptoms, right subcostal pain in the past few weeks. She presented to the [facility] Room on January 19 in the morning with severe right subcostal pain. Evaluation included gallbladder ultrasound showed a single large gallstone wedged in the infundibulum. Liver enzymes and other studies were normal. She preferred to have treatment locally rather than in [place] and was seen in my office where she was found to have tenderness in right subcostal area consistent with acute cholecystitis. She was admitted for further evaluation and care. PERTINENT PHYSICAL EXAMINATION: GENERAL: Showed a morbidly obese white woman, who looked to be in moderate discomfort. CHEST: Clear. HEART: Regular without murmur. ABDOMEN: Showed tenderness in right subcostal area. There is no ascites and no mass. IMAGING DATA: Review of her reports from ultrasound and lab studies confirmed a gallstone was wedged in infundibulum of the gallbladder and there was no sign of intrahepatic ductal dilatation or other signs of common duct obstruction. HOSPITAL COURSE: She was admitted, given intravenous fluid resuscitation, IV antibiotics, and on January 21, 2020, she underwent laparoscopic cholecystectomy with intraoperative cholangiogram. The cholangiogram was normal. She did indeed have a single gallstone in the gallbladder approximately a cm half in size. There was no sign of neoplasm. She Electronically Signed By: CLARI CAMPBELL MD 01/22/20 1832 PATIENT NAME: EDEL CALDWELL DISCHARGE SUMMARY DATE OF : [birth year] REPORT #: [id number] PHYSICIAN: CLARI CAMPBELL MD PCP: NO PRIMARY CARE PHYSICIAN REPORT IS CONFIDENTIAL AND NOT TO BE RELEASED WITHOUT AUTHORIZATION [facility] [address] [place] [id number] Signed had mild fatty infiltration of the liver. There were no other findings of concern. Her postoperative course was rather unremarkable. By the time of discharge, she is ambulating well, tolerating a regular diet and pain medication includes Motrin and Tylenol, not requiring opiates. She will return to see us in approximately 4 weeks. If she is doing exceptionally well, she can "call it in" she is doing well. If she has problems in the meantime, she will certainly let me know. As regards to restrictions, she should lift no more than 20 pounds for the next 2 weeks. She is permitted to work when she feels ready. DISCHARGE DIAGNOSES: 1. Acute calculous cholecystitis. 2. Morbid obesity. 3. Headaches. DISCHARGE MEDICATIONS: She will resume her usual medication of Strattera 40 mg p.o. daily, Mirena intrauterine device, Topamax 50 mg p.o. daily. Additionally, she will take Tylenol 1000 mg p.o. q.6 hours p.r.n. pain, Motrin 600 mg p.o. q.6 hours p.r.n. pain. MD BLANQUITA Law/EVROL /[id number] cc: Lidia Powell MD Copies: LIDIA POWELL MD ~ Electronically Signed By: CLARI CAMPBELL MD 01/22/20 1832 PATIENT NAME: EDEL CALDWELL MARKRAGHU DISCHARGE SUMMARY DATE OF : [birth year] REPORT #: [id number] PHYSICIAN: CLARI CAMPBELL MD PCP: NO PRIMARY CARE PHYSICIAN REPORT IS CONFIDENTIAL AND NOT TO BE RELEASED WITHOUT AUTHORIZATION
--- NOTE | 2020-01-22 18:34 | OR ---
[facility] [address], [place] [address] Signed DATE OF OPERATION: 01/21/2020 SURGEON: Clari Campbell MD PREOPERATIVE DIAGNOSES: 1. Acute calculous cholecystitis. 2. Morbid obesity. POSTOPERATIVE DIAGNOSES: 1. Acute calculous cholecystitis. 2. Morbid obesity. PROCEDURES: 1. Laparoscopic cholecystectomy with intraoperative cholangiogram. 2. Surgeon-directed fluoroscopy. ANESTHESIA: General endotracheal, Clari Andersen CRNA and local 10 mL of 0.25% Marcaine with epinephrine. 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 She lives in [place]. Two years ago, she was evaluated for symptoms suggestive of biliary disease. Her gallbladder ultrasound was normal. Her CCK-HIDA test showed reproduction of her symptoms, but no delay in its ejection fraction (79%). She had a significant weight loss by intermittent fasting and her symptoms largely resolved. She has slowly put weight back on and in the past few weeks and months has had increasing symptoms of biliary colic. She had a severe episode yesterday and presented to the emergency room at [facility] [place], where she was evaluated and found to have normal liver enzymes and CBC and an ultrasound was performed showing a single gallstone wedged in the infundibulum of the gallbladder. She saw me in my office, and I directly admitted her to the hospital. She has been given intravenous antibiotics, parenteral pain medications, and so on, anticipating cholecystectomy today. The risks of bleeding, infection, bile duct injury, need for open procedure, need for common duct exploration and so forth were all reviewed with her. She understands and wished to proceed. FINDINGS: The gallbladder was decompressed generally speaking, certainly far more than I expected. There is mild fatty infiltration of the liver. The gallbladder once excised had a Electronically Signed By: CLARI CAMPBELL MD 01/22/20 3745 PATIENT NAME: EDEL CALDWELL OPERATIVE REPORT DATE OF : 89 REPORT #: [id number] PHYSICIAN: CLARI CAMPBELL MD PCP: NO PRIMARY CARE PHYSICIAN REPORT IS CONFIDENTIAL AND NOT TO BE RELEASED WITHOUT AUTHORIZATION [facility] [address], [place] [address] Signed single large gallstone. No evidence of malignancy of the mucosa and chronic and subacute inflammation as well. The cholangiogram was normal. DESCRIPTION OF PROCEDURE: The patient was brought to the operating room, given a general endotracheal anesthetic. Preoperative antibiotic Ancef had been given. Sequential compression device stockings used and heparin subcutaneously administered. After satisfactory general endotracheal anesthesia, the abdomen was prepared with a Betadine solution and draped sterilely. An infraumbilical incision was made and using an open Kourtney cannula technique pneumoperitoneum was achieved to a level of 14 mmHg of carbon dioxide gas. Intraabdominal inspection showed no sign of ascites or carcinomatosis. The liver had mild fatty infiltration. Three additional trocars were placed in usual configuration of the subxiphoid, right midclavicular, and right anterior axillary line. The gallbladder had surrounding adhesions from the omentum, but was not distended and tense and certainly not gangrenous or with advanced inflammation at this time. The gallbladder was elevated cephalad, omental adhesions were taken down bluntly. The gallbladder was extended cephalad and using blunt electrocautery dissection, the infundibulum was dissected free. A relatively large cystic arterial branch was noted and this was from the cystic duct itself. A clip was applied across gallbladder cystic duct junction and a transverse cholelithotomy made in the cystic duct. Egress of clear bile was noted. Using an Pedro type cholangiocatheter, intraoperative cholangiography was undertaken with surgeon-directed fluoroscopy. Free flow of contrast was noted in the biliary tree with prompt emptying into the duodenum. There was no sign of filling defect to suggest common duct stone. Anatomy was conventional. The catheter was removed and the cystic duct was triply clipped and divided, and subsequently the cystic artery doubly clipped and divided. The gallbladder dissected free in a retrograde fashion using electrocautery. The gallbladder was extracted through the infraumbilical port site without problem, opened on the back table, and found to have chronic and subacute inflammatory change of the mucosa and a single rounded relatively large gallstone. Irrigation was undertaken at the subhepatic space, there was no sign of bile leak, bleeding, or other problems. Excess irrigation fluid was suctioned free. The trocars were removed under direct visualization showing no sign of bleeding. The infraumbilical fascial incision was reapproximated with interrupted 0-Vicryl suture as well as a running 0-PDS suture. The skin was then closed with interrupted 3-0 Vicryl after administration of 10 mL of 0.25% Marcaine with epinephrine. Steri-Strips were applied. The patient was ultimately extubated without problem and taken to the recovery room in good condition. BLOOD LOSS: Minimal. COMPLICATIONS: Electronically Signed By: CLARI CAMPBELL MD 01/22/20 1834 PATIENT NAME: EDEL CALDWELL OPERATIVE REPORT DATE OF : [birth year] REPORT #: [id number] PHYSICIAN: CLARI CAMPBELL MD PCP: NO PRIMARY CARE PHYSICIAN REPORT IS CONFIDENTIAL AND NOT TO BE RELEASED WITHOUT AUTHORIZATION [address] [place], [place] [address] Signed None. MD BLANQUITA Law/CHRISTINE /[id number] cc: MD Mauricio Paul MD Copies: LIDIA MAYER MD, DANIEL C MD ~ Electronically Signed By: CLARI CAMPBELL MD 01/22/20 1834 PATIENT NAME: EDEL CALDWELL OPERATIVE REPORT DATE OF : [birth year] REPORT #: [id number] PHYSICIAN: CLARI CAMPBELL MD PCP: NO PRIMARY CARE PHYSICIAN REPORT IS CONFIDENTIAL AND NOT TO BE RELEASED WITHOUT AUTHORIZATION
== END 2020-01-22 09:35 | disposition home or self-care (01) | DRG 418 ==
LOC: MS 12:17
PROVIDERS: ADMIT Surgery; ATTEND Surgery
PROC: BF10YZZ Fluoroscopy of Bile Ducts using Other Contrast (ICD-10-PCS; 2020-01-21)
PROC: 0FT44ZZ Resection of Gallbladder, Percutaneous Endoscopic Approach (ICD-10-PCS; principal; 2020-01-21 10:00)
DX: K80.12 Calculus of gallbladder with acute and chronic cholecystitis without obstruction (principal); Z68.42 Body mass index [BMI] 45.0-49.9, adult; Z20.828 Contact with and (suspected) exposure to other viral communicable diseases; E66.01 Morbid (severe) obesity due to excess calories; K76.0 Fatty (change of) liver, not elsewhere classified; R51 Headache; Z79.899 Other long term (current) drug therapy; Z97.5 Presence of (intrauterine) contraceptive device
CPT/HCPCS: 00790; 74300; A9270; C9803; J0330; J0690; J1100; J1170; J1644; J1885; J2250; J2270; J2405; J2704; J2765; J3010; J7121; Q9967